=== PATIENT | male | born 1965 | race Caucasian/White ===

== ENCOUNTER 2016-10-04 16:15 | Observation (INO) ==
[2016-10-04 17:16] LABS: Eosinophils # 0.2 K/mcL (0.0-0.6); Hematocrit 43.5 % (37.5-50.1); Hemoglobin 14.8 g/dL (12.9-16.9); Immature Granulocytes % 0.4 % (0-4); Lymphocytes # 1.3 K/mcL (0.6-4.6); Lymphocytes % 24.1 %; Mean Corpuscular Hemoglobin 28.6 pg (28.0-33.3); Mean Corpuscular Volume 84.1 fL (83.0-100.0); Mean Platelet Volume 9.9 fL (9.4-12.4); Monocytes # 0.4 K/mcL (0.0-1.3); Monocytes % 8.1 %; Neutrophils # 3.4 K/mcL (1.6-8.9); Platelet Count 150 K/mcL (140-400); Red Blood Count 5.17 M/mcL (4.19-5.50); Red Cell Distribution Width 14.5 % (11.5-14.5); Segmented Neutrophils % 64.4 %
[2016-10-04 17:27] LABS: BUN/Creatinine Ratio 16 (6-26); Blood Urea Nitrogen 13 mg/dL (8-26); Carbon Dioxide 27 mEq/L (19-29); Chloride 101 mEq/L (98-109); Glucose 94 mg/dL (70-99); Osmolality,Calculated 284 (280-300); Potassium 3.9 mEq/L (3.5-4.5); Sodium 137 mEq/L (136-145); eGFR For African Americans > 60 (> 60); eGFR For Non-African Americans > 60 (> 60)
--- NOTE | 2016-10-04 18:35 | Emergency Department Note ---
Disposition Clinical Impression: Chest pain, rule out acute myocardial infarction Disposition: Admitted As Inpatient Condition: Good Time of Disposition: 18:36 Chest Pain HPI - General Chief Complaint: ED Chest Pain Stated Complaint: CP x1day,jaw pain Time Seen by Provider: 10/04/16 17:04 Source: patient Mode of arrival: ambulatory Limitations: no limitations Vital Signs Reviewed: Yes Nursing Notes Reviewed: Yes - History of Present Illness HPI Narrative: 50-year-old male presents with concerns of chest pain intermittently over the past 24 hours. Patient states the chest pain as a deep aching pain that radiates to his left jaw and is associated with nausea and left upper extremity paresthesias. Patient denies shortness of breath. 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 There is also a strong family history of cardiac disease. Has not had a previous evaluation of his heart. Does not have a primary care provider. Has become progressive and intermittent over the past 24 hours. Never had pain like this before. Currently pain free in the emergency department however. Severity scale (1-10): 4 - Related Data Home Medications Medication Instructions Recorded Confirmed Lisinopril/Hydrochlorothiazide 1 tab PO DAILY 09/22/15 10/04/16 [Zestoretic 20-25 mg Tablet] Allergies Allergy/AdvReac Type Severity Reaction Status Date / Time Penicillins [PCN] Allergy See Verified 10/04/16 16:31 Comments All systems ED: reviewed and negative except as stated. Constitutional: Denies: fever, chills, weakness Cardiovascular: Reports: chest pain, dyspnea on exertion. Denies: palpitations , orthopnea Chest Pain PMH - Past Medical History Medical history: Reports: hypertension, other Surgical history: Reports: appendectomy, herniorrhaphy, other Psychiatric history: Reports: no psych history - Social History Smoking Status: Former smoker Alcohol use: Reports: none Drug use: Reports: none Physical Exam General: Alert and in no acute distress Skin: Warm, dry, intact Head: Normocephalic and atraumatic Neck: Supple, trachea midline and no tenderness Cardiovascular: RRR, no murmur, normal perfusion Respiratory: CTAB, no wheezing, cough, or respiratory distress Musculoskeletal: Normal strength, no tenderness, swelling or deformity GI: Soft, nontender, nondistended. Bowel sounds present Neuro: A&O to person, place, time and situation. No focal deficits noted on exam Psychiatric: cooperative and appropriate mood and affect. - General Limitations: no limitations General appearance: alert, in no apparent distress Course Vital Signs Temperature 97.9 F 10/04/16 16:26 Pulse Rate 79 10/04/16 16:26 Respiratory Rate 18 10/04/16 16:26 Blood Pressure 170/79 10/04/16 16:26 O2 Sat by Pulse Oximetry 96 10/04/16 16:26 Temperature 97.7 F 10/04/16 21:39 Pulse Rate 82 10/04/16 21:39 Respiratory Rate 16 10/04/16 21:39 Blood Pressure 109/56 10/04/16 21:39 O2 Sat by Pulse Oximetry 95 10/04/16 21:39 Oxygen Delivery Oxygen Delivery Room Air Chest Pain - Medical Records Medical records reviewed: Yes I reviewed the patient's medical records. - Lab Data Lab results reviewed: Yes I reviewed the patient's lab results. Result diagrams: 10/04/16 16:59 10/04/16 16:59 Lab Results 10/04/16 10/04/16 10/04/16 Range/Units 16:59 16:59 16:59 WBC 5.3 (4.3-11.1) K/mcL RBC 5.17 (4.19-5.50) M/mcL Hgb 14.8 (12.9-16.9) g/dL Hct 43.5 (37.5-50.1) % MCV 84.1 (83.0-100.0) fL MCH 28.6 (28.0-33.3) pg MCHC 34.0 (31.6-35.5) g/dL RDW 14.5 (11.5-14.5) % Plt Count 150 (140-400) K/mcL MPV 9.9 (9.4-12.4) fL Immature Gran % 0.4 (0-4) % Seg Neutrophils % 64.4 % Lymphocytes % 24.1 % Monocytes % 8.1 % Eosinophils % 3.0 % Basophils % 0.0 % Neutrophils # 3.4 (1.6-8.9) K/mcL Lymphocytes # 1.3 (0.6-4.6) K/mcL Monocytes # 0.4 (0.0-1.3) K/mcL Eosinophils # 0.2 (0.0-0.6) K/mcL Basophils # 0.0 (0.0-0.2) K/mcL Sodium 137 (136-145) mEq/L Potassium 3.9 (3.5-4.5) mEq/L Chloride 101 (98-109) mEq/L Carbon Dioxide 27 (19-29) mEq/L BUN 13 (8-26) mg/dL Creatinine 0.83 (0.72-1.25) mg/dL Est GFR ( Amer) > 60 (> 60) Est GFR (Non-Af Amer) > 60 (> 60) BUN/Creatinine Ratio 16 (6-26) Glucose 94 (70-99) mg/dL Calculated Osmolality 284 (280-300) Calcium 10.0 (8.6-10.8) mg/dL Troponin I 0.00 (0-0.03) ng/mL - Radiology Data Radiology results reviewed: Yes I reviewed the patient's radiology results. - EKG Data EKG attestation: Yes I reviewed and interpreted this EKG. EKG results narrative: ECG - interpreted by ED physician. Rate 80, normal sinus rhythm, no STEMI, MI, QT intervals, and QRS within normal limits Heart Score - Score History: Moderately Suspicious EKG: Normal Age: 45-65 Risk Factors: Equal/Greater than 3 risk factor or history of atherosclerotic disease Troponin: Less than normal limit HEART Score Total: 4
[2016-10-04] MEDS ORDERED: Aspirin 81 MG TAB.CHEW PO ONE (18:51)
--- NOTE | 2016-10-04 21:47 | Internal Med History&Physical ---
Date of Encounter: 10/04/16 Time of Encounter: 21:45 Assessment and Plan (1) Chest pain Current visit: Yes Status: Acute Currently chest pain-free. As per the history he gives history of exertional chest pain. Significant cardiac history in the family. Will start aspirin, statin. Trending troponin 3, first troponin is negative, no EKG changes at this time. Will order nuclear stress test tomorrow. consult cardio if abnormal stress test. Qualifiers: Chest pain type: unspecified Qualified Code(s): R07.9 - Chest pain, unspecified (2) Hypertension Current visit: No Status: Chronic BP controlled now, Will continue home meds. Qualifiers: Hypertension type: essential hypertension Qualified Code(s): I10 - Essential (primary) hypertension (3) Tobacco use Current visit: No Status: Chronic Internal Medicine - H&P: HPI Chief complaint: chest pain Admitted From: Home Plans for Post Hospital Care: Home History of present illness: Mr. De Anda is a 50 year old male with PMH of HTN presented with with concerns of chest pain intermittently over the past 24 hours. Patient states the chest pain is midsternal that radiates to his left jaw and is associated with nausea and left upper extremity paresthesias. Patient denies shortness of breath. 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 There is also a strong family history of cardiac disease. He reports that the chest pain gets worse with exertion, denies any shortness of breath at this time. Does not have a primary care provider. Currently pain free in the emergency department however. Past Med Surg Social Fam HX - Past Medical History Medical history: hypertension, other Psychiatric history: no psych history - Past Surgical History Surgical History: appendectomy, herniorrhaphy, other - Social History Smoking Status: Former smoker Smokeless Tobacco Status: Yes (chew tobacco) Alcohol use: none Drug use: none - Family History Mother Living Status: Hx Family Cancer: Yes (breast and bone cancer) Father Living Status: Hx Family Cardiac Disorders: Yes (HTN) Hx Family Cancer: Yes (lung cancer) Internal Medicine - H&P: Meds Lisinopril/Hydrochlorothiazide [Zestoretic 20-25 mg Tablet] 1 tab PO DAILY 09/21 [History] Allergies Penicillins [PCN] Allergy (Verified 10/04/16 16:31) See Comments All Systems PM: A 10-system review of systems was performed and is negative for pertinent findings except as documented above in the HPI. - Constitutional Constitutional: as per HPI - EENT Eyes: as per HPI Ears: no ear discharge, no ear pain, no tinnitus Nose, mouth and throat: no dysphagia, no nasal discharge, no neck pain, no sore throat - Breasts Breasts: as per HPI - Cardiovascular Cardiovascular ROS IM: no chest pain, no diaphoresis, no dyspnea, no lightheadedness, no palpitations, no syncope - Respiratory Respiratory: as per HPI - Gastrointestinal Gastrointestinal: no abdominal pain, no diarrhea, no hematemesis, no hematochezia, no melena, no nausea, no vomiting - Musculoskeletal Musculoskeletal ROS IM: no numbness, no tingling - Constitutional Vitals: Temp Pulse Resp BP Pulse Ox 97.7 F 82 16 109/56 95 10/04/16 21:39 10/04/16 21:39 10/04/16 21:39 10/04/16 21:39 10/04/16 21:39 General appearance: Present: A&O X 3, no acute distress Exam: Morbidity obese. Neck supple. Chest: Clear, no added sounds CVS S1 and S2, regular, no murmurs rubs or gallops. Abdomen soft, nontender, obese, bowel sounds are present. Extremities no edema. Neurologic alert and awake, no focal neuro deficits. Internal Med - H&P Results - Labs CBC & Chem 7: 10/04/16 16:59 10/04/16 16:59
[2016-10-04] MEDS ORDERED: Naloxone 0.4 MG/ML INJ IVP PRN ×2 (22:13→22:14)
[2016-10-04] MEDS ORDERED: *HR* HYDROcodone/Acet 5/325 mg TABLET PO PRN (22:14)
[2016-10-05 05:39] LABS: Basophils % 0.2 %; Eosinophils # 0.2 K/mcL (0.0-0.6); Eosinophils % 3.1 %; Hematocrit 41.2 % (37.5-50.1); Hemoglobin 14.1 g/dL (12.9-16.9); Immature Granulocytes % 0.6 % (0-4); Lymphocytes # 1.5 K/mcL (0.6-4.6); Mean Corpuscular HGB Conc 34.2 g/dL (31.6-35.5); Mean Corpuscular Hemoglobin 29.5 pg (28.0-33.3); Mean Corpuscular Volume 86.2 fL (83.0-100.0); Mean Platelet Volume 10.1 fL (9.4-12.4); Monocytes # 0.5 K/mcL (0.0-1.3); Monocytes % 9.4 %; Platelet Count 147 K/mcL (140-400); Red Blood Count 4.78 M/mcL (4.19-5.50); Red Cell Distribution Width 14.9 % (11.5-14.5); Segmented Neutrophils % 57.7 %
[2016-10-05] MEDS: *HR* Heparin 5,000 UNIT/ML VIAL SQ SCH ×2 (05:50→18:17)
[2016-10-05 05:53] LABS: BUN/Creatinine Ratio 20 (6-26); Blood Urea Nitrogen 24 mg/dL (8-26); Calcium 9.7 mg/dL (8.6-10.8); Carbon Dioxide 30 mEq/L (19-29); Chloride 100 mEq/L (98-109); Chol/HDL Ratio 7.6 (0-4.9); Cholesterol 145 mg/dL (< 200); Glucose 146 mg/dL (70-99); HDL Cholesterol 19 mg/dL (40-59); Magnesium 2.2 mg/dL (1.6-2.6); Osmolality,Calculated 291 (280-300); Phosphorous 5.1 mg/dL (2.3-4.7); Sodium 137 mEq/L (136-145); Triglycerides 548 mg/dL (< 150); eGFR For African Americans > 60 (> 60); eGFR For Non-African Americans > 60 (> 60)
[2016-10-05] MEDS ORDERED: Regadenoson 0.4 MG/5 ML SYRINGE IVP ONE (07:31)
[2016-10-05] MEDS: Aspirin 81 MG TAB.CHEW PO SCH (14:21)
--- NOTE | 2016-10-05 17:43 | Internal Med Progress Note ---
Date of Encounter: 10/05/16 Time of Encounter: 09:20 - Assessment and plan (1) Chest pain Current Visit: Yes Status: Acute Assessment and plan: Patient denies chest pain since arrival to the unit. Patient has completed day 1 of stress test, D2 tomorrow. Continue telemetry Continue to monitor chest pain Cardiac diet Oxygen as needed to maintain sats greater than 92% Cardiology consult if abnormal stress. Qualifiers: Chest pain type: unspecified Qualified Code(s): R07.9 - Chest pain, unspecified (2) Hypertension Current Visit: No Status: Chronic Assessment and plan: Chronic. Continue home medications. Well-controlled in inpatient setting. Qualifiers: Hypertension type: essential hypertension Qualified Code(s): I10 - Essential (primary) hypertension (3) Tobacco use Current Visit: No Status: Chronic Assessment and plan: Patient states he smokes one half pack cigarettes per day. He is not interested in smoking cessation at this time. (4) DVT prophylaxis Current Visit: No Status: Acute Assessment and plan: Patient is ambulatory observation status. - Time Spent With Patient less than 15 minutes - Subjective Interval history: Patient was seen and examined at 9:20 AM. He is sitting in his chair watching TV. He is alert and oriented. 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 He reported left jaw pain rated 9 out of 10, it then radiated down into his left neck. He pinpoints in the area on left lateral neck that is pick pulling machine tender to palpation. He then began having midsternal chest pain that radiated out bilaterally to left and right chest. He said that was a constant 4-5/10. He denied shortness of breath. He did report nausea and diaphoresis, most likely due to the heat he said. He states that he became hot and sweaty when he was helping unload his truck. He said that he driven about 30 hours and when he laid down in the sleeper of his truck, he began having alternating/bilateral arm falling asleep that was awakening him while he was sleeping. He denies knowledge of carpal tunnel or recent or chronic neck injury or pain. He denies any family history of heart disease, but tells the admit her that he has a strong family history of heart disease with in his family. His troponins were negative. Chest x-ray was negative. No EKG changes. Patient has completed day 1 of stress test. He has been started on aspirin and statin. Will consult cardiology if stress test is abnormal tomorrow. - Constitutional Vitals: Temp Pulse Resp BP Pulse Ox 98.6 F 87 17 125/87 95 10/05/16 14:55 10/05/16 14:55 10/05/16 14:55 10/05/16 14:55 10/05/16 14:55 General appearance: Present: A&O X 3, no acute distress, answers questions appropriately. Absent: pleasant - Head Head exam: Present: normal inspection - Eye Eye exam: Present: normal appearance, conjuntiva pink - ENT ENT exam: Present: mucous membranes moist, normal exam - Neck Neck exam general surgery: Present: normal inspection. Absent: lymphadenopathy , tenderness - Respiratory Respiratory exam: Present: decreased breath sounds, CTAB. Absent: chest wall tenderness, rales, respiratory distress, rhonchi, stridor, wheezes - Cardiovascular Cardiovascular exam: Present: distant heart sounds, RRR, +S1, +S2. Absent: clicks, diastolic murmur, gallop, systolic murmur - GI/Abdominal GI/Abdominal exam: Present: distended, normal bowel sounds, soft. Absent: hepatomegaly, tenderness - Extremities Exam Extremities exam: Present: full ROM, pedal edema, warm, radial pulses palpable and symetrical. Absent: calf tenderness, normal inspection, tenderness Additional comments: +1 nonpitting edema to bilateral lower extremities. Patient states this is normal for him. - Neurological Exam Neurological exam: Present: alert, oriented X3. Absent: facial droop, speech deficit - Skin Skin exam: Present: dry, normal color, warm Internal Medicine: Result - Labs CBC & Chem 7: 10/05/16 05:27 10/05/16 05:27 Labs: Short CBC 10/05/16 Range/Units 05:27 WBC 5.2 (4.3-11.1) K/mcL Hgb 14.1 (12.9-16.9) g/dL Hct 41.2 (37.5-50.1) % Plt Count 147 (140-400) K/mcL Neutrophils # 3.0 (1.6-8.9) K/mcL BMP 10/05/16 05:27 Sodium 137 Potassium 4.0 Chloride 100 Carbon Dioxide 30 H BUN 24 D Creatinine 1.19 Glucose 146 H Calcium 9.7 Cardiac Enzymes 10/04/16 10/05/16 Range/Units 22:28 05:27 Troponin I 0.00 0.01 (0-0.03) ng/mL Consult Discharge Plan - Plan Referrals: NO,PCP [Primary Care Provider] -
[2016-10-06] MEDS: *HR* Heparin 5,000 UNIT/ML VIAL SQ SCH (06:14)
[2016-10-06] MEDS: Aspirin 81 MG TAB.CHEW PO SCH (09:36)
[2016-10-06 11:36] VITALS: BP 134/78
--- NOTE | 2016-10-06 12:14 | Nuclear Medicine Stress Report ---
Exercise Nuclear Stress 2 day Name: Pierre De Anda Date of Study: 10/05/2016 Date: 1965 Ht: 72.0 in Medical Record#: [id number] Age: 50 Wt: 312.0 lb Gender: Male Order #: [id number] Location: [facility] Room: [facility] Supervising Provider: Coty Berry CNP Reading Physician: Miriam Rodarte DO Ordering Physician: Paulette Xiong CNP Primary Care Physician: None Stress Technologist: Stephanie Crum, ACQUISITION ANALYST,CPFT Cabinet Installer: Aakash Hickey Indications: Chest Pain Impression: Perfusion imaging was negative for ischemia or infarct. Exercise ECG was negative for ischemia. Isolated PVC, ventricular bigeminy and trigeminy during exercise. Gated EF = >70%. History: Hypertension Hypercholesteremia Stress Test Summary: Stress Test Type: Pharmacologic Baseline Information: Initial Heart Rate: 77 Blood Pressure: 106/54 Stress Information: Stress Time: 6 min 42 sec Test Terminated Due to (primary): Dyspnea Fatigue Maximum Blood Pressure: 190/62 Maximum Heart Rate: 148 Percent Maximum Heart Rate Achieved: 88 Double Product: [id number] METS Reached: 7 Symptoms: Leg discomfort, Shortness of breath, Fatigue Nuclear Summary: SPECT myocardial perfusion imaging using Tc99m Sestamibi given intravenously was performed at rest and following cardiac stress testing. The resting images were obtained following initial dose of 34.9 mCi. Following stress an additional dose of 34.7 mCi was given at peak exercise or 30 seconds post regadenoson infusion. Medication Given: Time Medication Dose Units Route Findings: Stress Note * Resting ECG demonstrated normal sinus rhythm with nonspecific ST abnormalities. * Exercise ECG is negative for ischemia. * A PVC, occasional ventricular bigeminy and trigeminy seen during exercise. * Patient had no chest pain during stress. * The exercise capacity was fair. Hemodynamic responses * Normal hemodynamic responses to exercise. Study Quality * Study quality was fair. Gated EF > 70% * Gated EF > 70%. Left Ventricle * The left ventricle is not dilated. TID * No evidence of transient ischemic dilatation. Lung Uptake * There is no evidence of increase lung uptake. NORMALS * Normal wall motion. PERFUSION * There is a mild intensity fixed perfusion defect in the basal and mid inferior wall. Wall motion is normal. Findings represent artifact. * Other areas demonstrate normal rest and stress perfusion. Updated by Miriam Rodarte on 10/06/2016 12:01:26 PM electronically signed on 10/06/2016 12:09:19 PM with status of Final
--- NOTE | 2016-10-06 14:06 | Discharge Summary ---
Date of Encounter: 10/06/16 Time of Encounter: 13:45 - Discharge Diagnosis (1) Chest pain Priority: Primary Status: Acute Comments: Irene states that his left jaw pain finally stopped while he was waiting to see me today. He finished day 2 of his stress test today. He says he is chest pain -free. Chest x-ray was negative, there were no EKG changes, troponins were negative. His lungs are clear anteriorly and posteriorly, S1-S2 regular rate and rhythm, he has minimal peripheral edema, nonpitting. Stress test was negative for ischemia or infarct, he did have isolated PVCs, ventricular bigeminy and trigeminy during exercise. Gated EF was greater than 70%. Patient reached 88% maximum heart rate and had leg discomfort, shortness of breath, fatigue during the stress test. Patient has increased risk factors of obesity, smoking, hypertension, and age. Patient will need to follow up with primary care physician. Qualifiers: Chest pain type: unspecified Qualified Code(s): R07.9 - Chest pain, unspecified (2) Hypertension Priority: Secondary Status: Chronic Comments: Well-controlled in inpatient setting. Continue medications at home. Qualifiers: Hypertension type: essential hypertension Qualified Code(s): I10 - Essential (primary) hypertension (3) Tobacco use Priority: Secondary Status: Chronic Comments: Patient states that he is not interested in smoking cessation materials or tools at this time. He says that he does not need cigarettes, however he will never stop using smokeless tobacco. (4) Morbid obesity with BMI of 40.0-44.9, adult Priority: Secondary Status: Chronic Comments: Chronic. Lifestyle changes. (5) DVT prophylaxis Priority: Secondary Status: Acute Comments: Patient is ambulatory. - Discharge Medications Prescriptions: Aspirin 81 mg PO DAILY #30 tab.chew Simvastatin [Zocor] 40 mg PO HS #30 tablet Home Medications: Lisinopril/Hydrochlorothiazide [Zestoretic 20-25 mg Tablet] 1 tab PO DAILY 09/21 [History] Aspirin 81 mg PO DAILY #30 tab.chew 10/06/16 [Rx] Simvastatin [Zocor] 40 mg PO HS #30 tablet 10/06/16 [Rx] Allergies/Adverse Reactions: Allergies Penicillins [PCN] Allergy (Verified 10/04/16 16:31) See Comments Procedures/tests Complete & Pending: Procedures Performed prior 72 hours Category Date Time Status NM jessica perf SPECT multi [NM] Routine Exams 10/04/16 22:18 Taken SP exercise nuclear stress Routine Y 10/04/16 22:17 Completed Date of admission: 10/04/16 20:51 Primary care physician: PCP NO Discharging clinician: Paulette Xiong Anticipated date of discharge: 10/06/16 - Patient Status Disposition: Home, Self-Care Functional capacity at discharge: independent ambulation Overall status at discharge: patient is back to baseline - Discharge Instructions Follow Up With: NO,PCP [Primary Care Provider] - Additional Instructions: Start your new medications in the morning. Continue your home medications. Follow up with your primary care physician to be cleared to return to work. Called the resident clinic in the morning to schedule an appointment. Return to the emergency department for any other concerning symptoms or if your symptoms return or worsen. - Diet and Activity Activity: increase activity as tolerated, return to work once cleared by your PCP/specialist, resume usual activities as tolerated Diet: low fat, low cholesterol Hospital course: Mr. De Anda is a 50 year old male prior medical history of hypertension. He presented to the emergency department on October 04 with complaint of left jaw pain rated 9/10, with radiation into the left neck. He pinpoints an area in the left lateral neck that is calender wind up tender to palpation. There were no palpable nodes, masses, nodules. Patient states he began began having midsternal chest pain that radiated out bilaterally to right and left chest. He said it was a constant 4-5/10. He denied shortness of breath, no nausea, but he did report diaphoresis that was most likely due to the heat. 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 He reports that he driven about 30 hours and when he laid down in the sleeper of his truck, he began having alternating/bilateral arm falling asleep/numbness/tingling that was awakening him while he was sleeping. The symptoms have resolved as well. He has no sensory deficits and his strengths are strong and equal bilaterally. He denies knowledge of carpal tunnel or any neck injury or pain, either acute or chronic. He denies family history of heart disease, however he tells he admitted that he has a strong family history of heart disease on both sides of his family. Troponins were negative. Chest x-ray was negative. There were no EKG changes. Stress test was also negative with a gaited EF of greater than 70% . Patient has been started on an aspirin and statin. I have given him prescriptions for both of those. Today he states that he waited so long to see me for his jaw stopped hurting. I have requested that he follow up with primary care or resident clinic to be cleared to return to work. 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 Patient is alert and oriented. He has 2 family members in the room. His vitals and labs have been within normal limits. He is stable for discharge. Time spent discussing smoking cessation with patient: 3 to 10 minutes - Time Spent with Patient Total time spent providing and/or coordinating discharge services: Less than 30 minutes - Constitutional Vitals: Temp Pulse Resp BP Pulse Ox 98.1 F 68 16 134/78 99 10/06/16 11:31 10/06/16 11:31 10/06/16 11:31 10/06/16 11:31 10/06/16 11:31 General appearance: Present: A&O X 3, morbidly obese, no acute distress, answers questions appropriately. Absent: pleasant - Head Head exam: Present: normal inspection - Eye Eye exam: Present: normal appearance, conjuntiva pink - ENT ENT exam: Present: mucous membranes moist, normal exam - Neck Neck exam general surgery: Present: normal inspection. Absent: lymphadenopathy , tenderness - Respiratory Respiratory exam: Present: CTAB. Absent: decreased breath sounds, rales, rhonchi, wheezes - Cardiovascular Cardiovascular exam: Present: RRR, +S1, +S2. Absent: clicks, diastolic murmur, gallop, systolic murmur - GI/Abdominal GI/Abdominal exam: Present: distended, normal bowel sounds, soft. Absent: hepatomegaly, tenderness - Extremities Exam Extremities exam: Present: warm, radial pulses palpable and symetrical. Absent : pedal edema, tenderness - Neurological Exam Neurological exam: Present: alert, oriented X3, no focal deficits. Absent: altered, facial droop, speech deficit - Skin Skin exam: Present: dry, normal color, warm. Absent: rash
--- NOTE | 2016-10-07 09:42 | Electrocardiograph Report ---
[address] [place] [address] Test Date: 2016-10-04 Pat Name: Pierre De Anda Department: 105 Room: 3B39 Gender: M Caregivers Homecare: [facility] : 1965 Requested By: Luis Manuel Dumont Order Number: [id number] Reading MD: Vern Gaitan MD Measurements Intervals [place] Rate: 80 P: 34 HI: 214 QRS: 14 QRSD: 92 T: 30 QT: 344 QTc: 379 Interpretive Statements SINUS RHYTHM WITH FIRST DEGREE AV BLOCK Electronically Signed On 10-07-2016 9:41:16 EDT by Vern Gaitan MD
== END 2016-10-06 15:19 | disposition home or self-care (01) ==
LOC: 3BNU 16:15 → EMEROO 16:15 → 3BNU 21:36
PROVIDERS: ADMIT Internal Medicine Endocrinology, Diabetes & Metabolism; ATTEND Registered Nurse

== ENCOUNTER 2018-10-24 19:43 | Observation (INO) ==
[2018-10-24] MEDS ORDERED: Ondansetron 4 MG/2 ML VIAL IVP ONE ×2 (20:23→22:35)
[2018-10-24] MEDS ORDERED: *HR* FentaNYL (PF) 100 MCG/2 ML VIAL IVP ONE (20:26)
[2018-10-24 20:27] LABS: Bilirubin,Urine Small (Negative); Blood,Urine Negative (Negative); Clarity,Urine Clear (Clear); Color,Urine Yellow (Yellow); Glucose,Urine (UA) Normal (Normal); Ketones,Urine 15 mg/dL (Negative); Leukocyte Esterase,Urine Negative (Negative); Nitrite,Urine Negative (Negative); Protein,Urine Negative (Neg-Trace); Specific Gravity,Urine 1.025 (1.010-1.025)
[2018-10-24 20:37] LABS: Basophils % 0.1 %; Eosinophils # 0.2 K/mcL (0.0-0.6); Eosinophils % 2.1 %; Hematocrit 37.7 % (37.5-50.1); Hemoglobin 12.3 g/dL (12.9-16.9); Immature Granulocytes % 0.3 % (0-4); Lymphocytes # 1.3 K/mcL (0.6-4.6); Lymphocytes % 18.5 %; Mean Corpuscular HGB Conc 32.6 g/dL (31.6-35.5); Mean Corpuscular Hemoglobin 28.9 pg (28.0-33.3); Mean Corpuscular Volume 88.5 fL (83.0-100.0); Mean Platelet Volume 9.4 fL (9.4-12.4); Monocytes # 0.4 K/mcL (0.0-1.3); Monocytes % 6.1 %; Neutrophils # 5.1 K/mcL (1.6-8.9); Platelet Count 146 K/mcL (140-400); Red Blood Count 4.26 M/mcL (4.19-5.50); Red Cell Distribution Width 14.2 % (11.5-14.5); Segmented Neutrophils % 72.9 %
--- NOTE | 2018-10-24 20:44 | Emergency Department Note ---
Disposition Clinical Impression: Chronic cholecystitis, Lymphadenopathy Disposition: Admitted As Inpatient Condition: Good Referrals: Natalia Lynch, ARLEN [Primary Care Provider] - Forms: ED Satisfaction Letter, Work/School Release Time of Disposition: 22:53 Abdominal Pain HPI - General Chief Complaint: ED Abdominal Pain Stated Complaint: Gallstones Time Seen by Provider: 10/24/18 19:49 Source: patient Limitations: no limitations Nursing Notes Reviewed: Yes Vital Signs Reviewed: Yes - History of Present Illness HPI Narrative: Mr. De Anda is a 52 yo man who came to the ED on 10/24/18 for worsening diffuse abdominal pain that radiates to his flanks bilaterally. He was seen on 10/21/18 and had an US that showed cholelithiasis w/o cholecystitis. He thinks he has had a low-grade fever. He is eating and drinking, but nauseated. He said he came to the ED due to severity of pain; he "just wants his gallbladder out." Patient has been working with patient support representative to control BP and prediabetes; he reports losing nearly 40 lbs during past 6 months as well as being able to stop his BP medications. PMH significant for diverticulitis, HTN. Social history significant for smoking occasionally, chewing tobacco but not alcohol or other drugs. Pain Scale: 9 - Related Data Home Medications Medication Instructions Recorded Confirmed Lisinopril/Hydrochlorothiazide 1 tab PO DAILY 09/22/15 10/04/16 [Zestoretic 20-25 mg Tablet] Previous Rx's Medication Instructions Recorded Aspirin 81 mg PO DAILY #30 tab.chew 10/06/16 Simvastatin [Zocor] 40 mg PO HS #30 tablet 10/06/16 PredniSONE [Deltasone] 40 mg PO DAILY #5 tablet 01/13/18 Ciprofloxacin [Cipro] 500 mg PO BID #20 tablet 04/26/18 Ondansetron ODT [Zofran ODT] 4 mg SL Q6HR #12 tab.rapdis 04/26/18 metroNIDAZOLE [Flagyl] 500 mg PO TID #30 tablet 04/26/18 Hyoscyamine SL [Levsin SL] 0.125 mg SL TID #30 tab.subl 10/21/18 Ondansetron ODT [Zofran ODT] 4 mg SL Q6HR #30 tab.rapdis 10/21/18 Allergies Allergy/AdvReac Type Severity Reaction Status Date / Time Penicillins [PCN] Allergy See Verified 10/04/16 16:31 Comments All systems ED: reviewed and negative except as stated. Constitutional: Reports: weakness Respiratory: Reports: cough Gastrointestinal: Reports: abdominal pain, nausea Musculoskeletal: Reports: back pain Endocrine: Reports: fatigue Abdominal Pain PMH - Past Medical History Medical history: Reports: hypertension, other Reports: diverticulitis Male Surgical History: Reports: other Psychiatric history: Reports: no psych history - Social History Smoking status: Current some day smoker Alcohol use: Reports: none Drug use: Reports: none Physical Exam PE Gen: Anxious, AOx3, responsive ENT: Pupils equal and reactive, no discharge Card: Regular rhythm and rate, no murmur, no cyanosis, no clubbing, no peripheral edema, good perfusion in all extremities Resp: Lungs clear in all marx on auscultation GI: Abdomen soft, nondistended, diffusely tender to palpation, negative McBurney's Point, negative Rovsing's sign, negative Murillo's sign on exam. No stigmata. : Mild suprapubic tenderness, no distention MSK: Normal ROM, no deficits Neuro: CNI-XII intact, no tremor, no ataxia Psych: Appropriate affect, anxious, tearful - General Limitations: no limitations General appearance: alert, in no apparent distress Course Course Narrative: US on 10/21/18 showed cholelithiasis w/o wall thickening or pericholecystic fluid. Ordered CT abdomen/pelvis to evaluate. Also CBC, UA to evaluate for UTI/kidney stone, BMP. EKG to r/o cardiac etiology. Patient given fentanyl for pain and became comfortable, also given Zofran. Labs and EKG WNL. CT report found increasing pelvic and gastrohepatic lymphadenopathy with hepatosplenomegaly concerning for occult malignancy. Heme Onc consulted, would like patient admitted for workup. Patient agreed with plan. - Reevaluation(s) Reevaluation #1: Much more comfortable following pain medication, still reluctant to move. VS stable and WNL. Time: 21:30 Vital Signs Temperature 98.9 F 10/24/18 19:48 Pulse Rate 84 10/24/18 19:48 Respiratory Rate 18 10/24/18 19:48 Blood Pressure 150/83 10/24/18 19:48 O2 Sat by Pulse Oximetry 97 10/24/18 19:48 Temperature 98.9 F 10/24/18 19:48 Pulse Rate 84 10/24/18 19:48 Respiratory Rate 18 10/24/18 19:48 Blood Pressure 150/83 10/24/18 19:48 O2 Sat by Pulse Oximetry 97 10/24/18 19:48 Oxygen Delivery Oxygen Delivery Room Air Abdominal Pain - Medical Records Medical records reviewed: Yes I reviewed the patient's medical records. - Lab Data Lab results reviewed: Yes I reviewed the patient's lab results. Result diagrams: 10/24/18 20:14 10/24/18 20:22 Lab Results 10/24/18 10/24/18 10/24/18 Range/Units 20:14 20:17 20:18 WBC 7.0 (4.3-11.1) K/mcL RBC 4.26 (4.19-5.50) M/mcL Hgb 12.3 L (12.9-16.9) g/dL Hct 37.7 (37.5-50.1) % MCV 88.5 (83.0-100.0) fL MCH 28.9 (28.0-33.3) pg MCHC 32.6 (31.6-35.5) g/dL RDW 14.2 (11.5-14.5) % Plt Count 146 (140-400) K/mcL MPV 9.4 (9.4-12.4) fL Immature Gran % 0.3 (0-4) % Seg Neutrophils % 72.9 % Lymphocytes % 18.5 % Monocytes % 6.1 % Eosinophils % 2.1 % Basophils % 0.1 % Neutrophils # 5.1 (1.6-8.9) K/mcL Lymphocytes # 1.3 (0.6-4.6) K/mcL Monocytes # 0.4 (0.0-1.3) K/mcL Eosinophils # 0.2 (0.0-0.6) K/mcL Basophils # 0.0 (0.0-0.2) K/mcL Sodium (136-145) mEq/L Potassium (3.5-5.1) mEq/L Chloride (98-107) mEq/L Carbon Dioxide (23-29) mEq/L BUN (6-20) mg/dL Creatinine (0.70-1.30) mg/dL Est GFR ( Amer) (> 60) Est GFR (Non-Af Amer) (> 60) BUN/Creatinine Ratio (6-26) Glucose (70-105) mg/dL Calculated Osmolality (280-300) Calcium (8.6-10.3) mg/dL Total Bilirubin 0.6 (0.3-1.0) mg/dL Direct Bilirubin 0.1 (0.0-0.2) mg/dL Indirect Bilirubin 0.5 (0.0-1.2) mg/dL AST 14 (13-39) Units/L ALT 16 (7-52) Units/L Alkaline Phosphatase 64 (34-104) Units/L Troponin I (< 0.04) ng/mL Serum Total Protein 7.3 (6.4-8.9) g/dL Albumin 4.5 (3.5-5.7) g/dL Globulin 2.8 (2.4-3.5) g/dL Albumin/Globulin Ratio 1.6 (1.1-2.2) Lipase 26 (11-82) Units/L Urine Color Yellow (Yellow) Urine Clarity Clear (Clear) Urine pH 6.0 (5.0-8.0) pH Units Ur Specific [place] 1.025 (1.010-1.025) Urine Protein Negative (Neg-Trace) mg/dL Urine Glucose (UA) Normal (Normal) mg/dL Urine Ketones 15 H (Negative) mg/dL Urine Blood Negative (Negative) Urine Nitrite Negative (Negative) Urine Bilirubin Small H (Negative) Urine Urobilinogen 2.0 H (Normal) mg/dL Ur Leukocyte Esterase Negative (Negative) Ur Culture Indicated? NO (NO) 10/24/18 Range/Units 20:22 WBC (4.3-11.1) K/mcL RBC (4.19-5.50) M/mcL Hgb (12.9-16.9) g/dL Hct (37.5-50.1) % MCV (83.0-100.0) fL MCH (28.0-33.3) pg MCHC (31.6-35.5) g/dL RDW (11.5-14.5) % Plt Count (140-400) K/mcL MPV (9.4-12.4) fL Immature Gran % (0-4) % Seg Neutrophils % % Lymphocytes % % Monocytes % % Eosinophils % % Basophils % % Neutrophils # (1.6-8.9) K/mcL Lymphocytes # (0.6-4.6) K/mcL Monocytes # (0.0-1.3) K/mcL Eosinophils # (0.0-0.6) K/mcL Basophils # (0.0-0.2) K/mcL Sodium 137 (136-145) mEq/L Potassium 3.9 (3.5-5.1) mEq/L Chloride 104 (98-107) mEq/L Carbon Dioxide 24 (23-29) mEq/L BUN 14 (6-20) mg/dL Creatinine 0.91 (0.70-1.30) mg/dL Est GFR ( Amer) > 60 (> 60) Est GFR (Non-Af Amer) > 60 (> 60) BUN/Creatinine Ratio 15 (6-26) Glucose 99 (70-105) mg/dL Calculated Osmolality 285 (280-300) Calcium 9.4 (8.6-10.3) mg/dL Total Bilirubin (0.3-1.0) mg/dL Direct Bilirubin (0.0-0.2) mg/dL Indirect Bilirubin (0.0-1.2) mg/dL AST (13-39) Units/L ALT (7-52) Units/L Alkaline Phosphatase (34-104) Units/L Troponin I < 0.03 (< 0.04) ng/mL Serum Total Protein (6.4-8.9) g/dL Albumin (3.5-5.7) g/dL Globulin (2.4-3.5) g/dL Albumin/Globulin Ratio (1.1-2.2) Lipase (11-82) Units/L Urine Color (Yellow) Urine Clarity (Clear) Urine pH (5.0-8.0) pH Units Ur Specific [place] (1.010-1.025) Urine Protein (Neg-Trace) mg/dL Urine Glucose (UA) (Normal) mg/dL Urine Ketones (Negative) mg/dL Urine Blood (Negative) Urine Nitrite (Negative) Urine Bilirubin (Negative) Urine Urobilinogen (Normal) mg/dL Ur Leukocyte Esterase (Negative) Ur Culture Indicated? (NO) - Radiology Data Radiology results reviewed: Yes I reviewed the patient's radiology results. Abdomen/Pelvis CT 10/24/18 20:13 IMPRESSION: Enlarging bilateral pelvic lymph nodes with perinodal stranding. Moderate to marked splenomegaly. Increasing size and number of gastrohepatic lymph nodes. Increased stranding about the celiac axis. Moderate hepatomegaly. Cholelithiasis with suspected changes of chronic cholecystitis. Constellation of findings along with abnormal weight loss worrisome for occult malignancy. Lymphoma, leukemia, and perhaps prostate cancer are suggested as possible diagnoses. D/ / Royer Valencia MD / Royer Valencia MD Interpreting Provider: Royer Valencia MD - EKG Data EKG attestation: Yes I reviewed and interpreted this EKG. EKG shows normal: sinus rhythm Rate: normal Rhythm: NSR Interpretation: normal EKG
[2018-10-24 20:53] LABS: Albumin 4.5 g/dL (3.5-5.7); Albumin/Globulin Ratio 1.6 (1.1-2.2); Bilirubin,Direct 0.1 mg/dL (0.0-0.2); Bilirubin,Indirect 0.5 mg/dL (0.0-1.2); Bilirubin,Total 0.6 mg/dL (0.3-1.0); Globulin 2.8 g/dL (2.4-3.5); Total Protein 7.3 g/dL (6.4-8.9)
[2018-10-24 20:55] LABS: BUN/Creatinine Ratio 15 (6-26); Blood Urea Nitrogen 14 mg/dL (6-20); Calcium 9.4 mg/dL (8.6-10.3); Carbon Dioxide 24 mEq/L (23-29); Chloride 104 mEq/L (98-107); Glucose 99 mg/dL (70-105); Osmolality,Calculated 285 (280-300); Potassium 3.9 mEq/L (3.5-5.1); Sodium 137 mEq/L (136-145); eGFR For African Americans > 60 (> 60); eGFR For Non-African Americans > 60 (> 60)
[2018-10-24 20:56] LABS: Troponin I < 0.03 ng/mL (< 0.04)
[2018-10-24] MEDS ORDERED: Morphine Sulfate 2 MG/ML SYRINGE IVP ONE (22:35)
--- NOTE | 2018-10-24 22:47 | Emergency Department Note ---
Disposition Clinical Impression: Chronic cholecystitis, Lymphadenopathy Disposition: Admitted As Inpatient Condition: Good Referrals: Natalia Lynch CNP [Primary Care Provider] - Forms: ED Satisfaction Letter, Work/School Release Time of Disposition: 22:47 General Adult HPI - General Chief complaint: ED Abdominal Pain Stated complaint: Gallstones Time Seen by Provider: 10/24/18 19:49 Source: patient Limitations: no limitations - History of Present Illness Pain Scale: 9 - Related Data Home Medications Medication Instructions Recorded Confirmed RX: Lisinopril/Hydrochlorothiazide 1 tab PO DAILY 09/22/15 10/04/16 [Zestoretic 20-25 mg Tablet] Previous Rx's Medication Instructions Recorded RX: Aspirin 81 mg PO DAILY #30 tab.chew 10/06/16 RX: Simvastatin [Zocor] 40 mg PO HS #30 tablet 10/06/16 RX: PredniSONE [Deltasone] 40 mg PO DAILY #5 tablet 01/13/18 Ondansetron ODT [Zofran ODT] 4 mg SL Q6HR #12 tab.rapdis 04/26/18 RX: Ciprofloxacin [Cipro] 500 mg PO BID #20 tablet 04/26/18 metroNIDAZOLE [Flagyl] 500 mg PO TID #30 tablet 04/26/18 Hyoscyamine SL [Levsin SL] 0.125 mg SL TID #30 tab.subl 10/21/18 Ondansetron ODT [Zofran ODT] 4 mg SL Q6HR #30 tab.rapdis 10/21/18 Allergies Allergy/AdvReac Type Severity Reaction Status Date / Time Penicillins [PCN] Allergy See Verified 10/04/16 16:31 Comments Constitutional: Reports: weakness Respiratory: Reports: cough Gastrointestinal: Reports: abdominal pain, nausea Musculoskeletal: Reports: back pain Endocrine: Reports: fatigue Past Medical History - Past Medical History Medical history: Reports: hypertension, other Surgical history: Reports: appendectomy, herniorrhaphy, other Psychiatric history: Reports: no psych history - Social History Smoking Status: Current some day smoker Smokeless Tobacco Status: Yes (chew tobacco) Alcohol use: Reports: none Drug use: Reports: none Physical Exam - General Limitations: no limitations General appearance: alert, in no apparent distress Course Vital Signs Temperature 98.9 F 10/24/18 19:48 Pulse Rate 84 10/24/18 19:48 Respiratory Rate 18 10/24/18 19:48 Blood Pressure 150/83 10/24/18 19:48 O2 Sat by Pulse Oximetry 97 10/24/18 19:48 Temperature 98.9 F 10/24/18 19:48 Pulse Rate 84 10/24/18 19:48 Respiratory Rate 18 10/24/18 19:48 Blood Pressure 150/83 10/24/18 19:48 O2 Sat by Pulse Oximetry 97 10/24/18 19:48 Oxygen Delivery Oxygen Delivery Room Air Medical Decision Making - Lab Data Result diagrams: 10/24/18 20:14 10/24/18 20:22 Lab Results 10/24/18 10/24/18 10/24/18 Range/Units 20:14 20:17 20:18 WBC 7.0 (4.3-11.1) K/mcL RBC 4.26 (4.19-5.50) M/mcL Hgb 12.3 L (12.9-16.9) g/dL Hct 37.7 (37.5-50.1) % MCV 88.5 (83.0-100.0) fL MCH 28.9 (28.0-33.3) pg MCHC 32.6 (31.6-35.5) g/dL RDW 14.2 (11.5-14.5) % Plt Count 146 (140-400) K/mcL MPV 9.4 (9.4-12.4) fL Immature Gran % 0.3 (0-4) % Seg Neutrophils % 72.9 % Lymphocytes % 18.5 % Monocytes % 6.1 % Eosinophils % 2.1 % Basophils % 0.1 % Neutrophils # 5.1 (1.6-8.9) K/mcL Lymphocytes # 1.3 (0.6-4.6) K/mcL Monocytes # 0.4 (0.0-1.3) K/mcL Eosinophils # 0.2 (0.0-0.6) K/mcL Basophils # 0.0 (0.0-0.2) K/mcL Sodium (136-145) mEq/L Potassium (3.5-5.1) mEq/L Chloride (98-107) mEq/L Carbon Dioxide (23-29) mEq/L BUN (6-20) mg/dL Creatinine (0.70-1.30) mg/dL Est GFR ( Amer) (> 60) Est GFR (Non-Af Amer) (> 60) BUN/Creatinine Ratio (6-26) Glucose (70-105) mg/dL Calculated Osmolality (280-300) Calcium (8.6-10.3) mg/dL Total Bilirubin 0.6 (0.3-1.0) mg/dL Direct Bilirubin 0.1 (0.0-0.2) mg/dL Indirect Bilirubin 0.5 (0.0-1.2) mg/dL AST 14 (13-39) Units/L ALT 16 (7-52) Units/L Alkaline Phosphatase 64 (34-104) Units/L Troponin I (< 0.04) ng/mL Serum Total Protein 7.3 (6.4-8.9) g/dL Albumin 4.5 (3.5-5.7) g/dL Globulin 2.8 (2.4-3.5) g/dL Albumin/Globulin Ratio 1.6 (1.1-2.2) Lipase 26 (11-82) Units/L Urine Color Yellow (Yellow) Urine Clarity Clear (Clear) Urine pH 6.0 (5.0-8.0) pH Units Ur Specific [place] 1.025 (1.010-1.025) Urine Protein Negative (Neg-Trace) mg/dL Urine Glucose (UA) Normal (Normal) mg/dL Urine Ketones 15 H (Negative) mg/dL Urine Blood Negative (Negative) Urine Nitrite Negative (Negative) Urine Bilirubin Small H (Negative) Urine Urobilinogen 2.0 H (Normal) mg/dL Ur Leukocyte Esterase Negative (Negative) Ur Culture Indicated? NO (NO) 10/24/18 Range/Units 20:22 WBC (4.3-11.1) K/mcL RBC (4.19-5.50) M/mcL Hgb (12.9-16.9) g/dL Hct (37.5-50.1) % MCV (83.0-100.0) fL MCH (28.0-33.3) pg MCHC (31.6-35.5) g/dL RDW (11.5-14.5) % Plt Count (140-400) K/mcL MPV (9.4-12.4) fL Immature Gran % (0-4) % Seg Neutrophils % % Lymphocytes % % Monocytes % % Eosinophils % % Basophils % % Neutrophils # (1.6-8.9) K/mcL Lymphocytes # (0.6-4.6) K/mcL Monocytes # (0.0-1.3) K/mcL Eosinophils # (0.0-0.6) K/mcL Basophils # (0.0-0.2) K/mcL Sodium 137 (136-145) mEq/L Potassium 3.9 (3.5-5.1) mEq/L Chloride 104 (98-107) mEq/L Carbon Dioxide 24 (23-29) mEq/L BUN 14 (6-20) mg/dL Creatinine 0.91 (0.70-1.30) mg/dL Est GFR ( Amer) > 60 (> 60) Est GFR (Non-Af Amer) > 60 (> 60) BUN/Creatinine Ratio 15 (6-26) Glucose 99 (70-105) mg/dL Calculated Osmolality 285 (280-300) Calcium 9.4 (8.6-10.3) mg/dL Total Bilirubin (0.3-1.0) mg/dL Direct Bilirubin (0.0-0.2) mg/dL Indirect Bilirubin (0.0-1.2) mg/dL AST (13-39) Units/L ALT (7-52) Units/L Alkaline Phosphatase (34-104) Units/L Troponin I < 0.03 (< 0.04) ng/mL Serum Total Protein (6.4-8.9) g/dL Albumin (3.5-5.7) g/dL Globulin (2.4-3.5) g/dL Albumin/Globulin Ratio (1.1-2.2) Lipase (11-82) Units/L Urine Color (Yellow) Urine Clarity (Clear) Urine pH (5.0-8.0) pH Units Ur Specific [place] (1.010-1.025) Urine Protein (Neg-Trace) mg/dL Urine Glucose (UA) (Normal) mg/dL Urine Ketones (Negative) mg/dL Urine Blood (Negative) Urine Nitrite (Negative) Urine Bilirubin (Negative) Urine Urobilinogen (Normal) mg/dL Ur Leukocyte Esterase (Negative) Ur Culture Indicated? (NO) Attestation Statement - Attestation Attestation: I reviewed the residents documentation and agree with the residents assessment and plan of care. I have personally had face to face time with the patient. (Brief History, Brief Exam, and MDM) I personally supervised and was present for the woen/critical portions of the following procedures completed by the resident: EKG 52 year old male presents to the ED with complaints of RUQ pain and was most recently evlautd by the ED on 10/21 with a negtie RUQ US. He has followup with surgery next week for consulation on removing the galbladder. It appears that he may have chornic cholecystitis but more concerning is that there may be a concnern for GI cancer with the lymph nodes that are present. He states that he has lost 50 pounds in 15 weeks but this has been intentional with diet. we have discussed with surgery who does not believe that his a surgical candidate at is time. Discussed case with oncology and they have otherwise recommended admission to the medicien service and they will see in consult tomorrow
[2018-10-25] MEDS ORDERED: Naloxone 0.4 MG/ML INJ IVP PRN (01:38)
[2018-10-25] MEDS ORDERED: Acetaminophen 325 MG TABLET PO PRN ×2 (01:41→17:06)
--- NOTE | 2018-10-25 02:27 | Internal Med History&Physical ---
Date of Encounter: 10/25/18 Time of Encounter: 01:00 Internal Medicine - H&P: HPI Chief complaint: Abdominal pain Admitted From: Home Plans for Post Hospital Care: Home History of present illness: Mr. De Anda is a 52 year old male with past medical history significant for hypertension, hyperlipidemia, diverticulitis, and tobacco abuse who presents for constant right upper quadrant abdominal pain radiating to his back and the center of his abdomen. Presented to the ER on 10/21/18 for the same and was diagnosed with cholelithiasis without cholecystitis confirmed by ultrasound and had follow-up arranged with surgery outpatient and was discharged home. However he now returns as his pain has persisted and is becoming more severe. Pain is rated at 9/10 when at its worst and reports it waxes and wanes in intensity. Denies any known alleviating or exacerbating factors. Pain is associated with nausea. Patient reports feeling well until this pain recently started. Reports several months ago being told by PCP that he was prediabetic and at that time started dieting and exercising and reports 50 pound weight loss in last six months. As a result of his weight loss he reports being able to stop medications for hypertension and hyperlipidemia. Currently denies being on any medications. ER obtained CT of the abdomen and pelvis which showed enlarging bilateral pelvic lymph nodes with perinodal stranding, moderate to marked splenomegaly, increasing size and number gastrohepatic lymph nodes, increased stranding about the celiac axis, moderate hepatomegaly, cholelithiasis with suspected changes of chronic cholecystitis, constellation of findings along with abnormal weight loss worrisome for occult malignancy, lymphoma leukemia and perhaps prostate cancer suggested as possible diagnoses. ER also obtained EKG which was reported as sinus rhythm. Received fentanyl, morphine, and zofran while in ER and currently reports improvement in his symptoms. Currently denies any headache, numbness, tingling, chest pain, nausea, bowel or bladder changes. ER discussed patient findings with surgery who did not think he was a surgical candidate at this time. ER also discussed with oncology who recommended ad mission to medicine and will see in consult this morning. Follows regularly with his PCP. Reports smokeless tobacco use but denies any alcohol or drug use. Past Med Surg Social Fam HX - Past Medical History Medical history: hyperlipidemia, hypertension, other Additional medical history: diverticulitis Psychiatric history: no psych history - Past Surgical History Surgical History: appendectomy, herniorrhaphy, other Additional surgical history: Tongue, nose, throat for apnea. Right testicle - Social History Smoking Status: Smoker, status unknown Smokeless Tobacco Status: Yes (chew tobacco) Alcohol use: none Drug use: none - Family History Mother Living Status: Hx Family Cancer: Yes (breast and bone cancer) Father Living Status: Hx Family Cardiac Disorders: Yes (HTN) Hx Family Cancer: Yes (lung cancer) Internal Medicine - H&P: Meds No Known Home Drugs 10/24/18 [History] Allergy/AdvReac Type Severity Reaction Status Date / Time Penicillins [PCN] Allergy See Verified 10/04/16 16:31 Comments All Systems PM: A 10-system review of systems was performed and is negative for pertinent findings except as documented above in the HPI. - Constitutional Vitals: Temp Pulse Resp BP Pulse Ox 97.9 F 75 14 133/81 96 10/25/18 01:09 10/25/18 01:09 10/25/18 01:09 10/25/18 01:09 10/25/18 01:09 Exam: General: Alert and oriented. Skin:Normal color, no rash, no lesions. HEENT:Pupils equal, round and reactive. Cardiovascular:Heart sounds distant, no rubs, murmurs or gallops. No JVD. Pulse regular. Lungs:Normal breath sounds, no wheezes or crackles. Abdomen:Soft, no rigidity. Tenderness on palpation to right upper quadrant. Extremities:No deformity, no edema or tenderness, no joint swelling or clubbing. Neurological:Normal cognition and motor skills. Pulses:Carotid and radial pulses normal +2. Rest of the physical exam is non contributory. Internal Med - H&P Results - Labs CBC & Chem 7: 10/24/18 20:14 10/24/18 20:22 Labs: Short CBC 10/24/18 Range/Units 20:14 WBC 7.0 (4.3-11.1) K/mcL Hgb 12.3 L (12.9-16.9) g/dL Hct 37.7 (37.5-50.1) % Plt Count 146 (140-400) K/mcL Neutrophils # 5.1 (1.6-8.9) K/mcL BMP 10/24/18 20:22 Sodium 137 Potassium 3.9 Chloride 104 Carbon Dioxide 24 BUN 14 Creatinine 0.91 Glucose 99 Calcium 9.4 Cardiac Enzymes 10/24/18 Range/Units 20:22 Troponin I < 0.03 (< 0.04) ng/mL Liver Function 10/24/18 Range/Units 20:17 Total Bilirubin 0.6 (0.3-1.0) mg/dL Direct Bilirubin 0.1 (0.0-0.2) mg/dL AST 14 (13-39) Units/L ALT 16 (7-52) Units/L Alkaline Phosphatase 64 (34-104) Units/L Albumin 4.5 (3.5-5.7) g/dL Urine 10/24/18 Range/Units 20:18 Urine Color Yellow (Yellow) Urine Clarity Clear (Clear) Urine pH 6.0 (5.0-8.0) pH Units Ur Specific [place] 1.025 (1.010-1.025) Urine Protein Negative (Neg-Trace) mg/dL Urine Glucose (UA) Normal (Normal) mg/dL - Impressions ITS Impressions Abdomen/Pelvis CT 10/24/18 20:13 IMPRESSION: Enlarging bilateral pelvic lymph nodes with perinodal stranding. Moderate to marked splenomegaly. Increasing size and number of gastrohepatic lymph nodes. Increased stranding about the celiac axis. Moderate hepatomegaly. Cholelithiasis with suspected changes of chronic cholecystitis. Constellation of findings along with abnormal weight loss worrisome for occult malignancy. Lymphoma, leukemia, and perhaps prostate cancer are suggested as possible diagnoses. D/ / Royer Valencia MD / Royer Valencia MD Interpreting Provider: Royer Valencia MD - Assessment and Plan (1) Abdominal pain Current Visit: Yes Status: Acute Assessment and plan: Complains of constant right upper quadrant abdominal pain radiating to his back center of his abdomen waxing and waning in intensity. Seen in ER 10/21/18 for the same and was diagnosed with cholelithiasis without cholecystitis confirmed by ultrasound and had follow-up arranged with surgery outpatient and was discharged home. ER obtained CT of the abdomen and pelvis which showed enlarging bilateral pelvic lymph nodes with perinodal stranding, moderate to marked splenomegaly, increasing size and number gastrohepatic lymph nodes, increased stranding about the celiac axis, moderate hepatomegaly, cholelithiasis with suspected changes of chronic cholecystitis, constellation of findings along with abnormal weight loss worrisome for occult malignancy, lymphoma leukemia and perhaps prostate cancer suggested as possible diagnoses. ER discussed patient findings with surgery who did not think he was a surgical candidate at this time. ER also discussed with oncology who recommended admission to medicine and will see in consult this morning, consult order placed. Pain and nausea control with PRN medications. Qualifiers: Abdominal location: right upper quadrant Qualified Code(s): R10.11 - Right upper quadrant pain (2) Lymphadenopathy Current Visit: Yes Status: Acute Assessment and plan: Plan as stated above. (3) Cholelithiasis with chronic cholecystitis Current Visit: Yes Status: Acute Assessment and plan: Plan as stated above. Follow-up with surgery as outpatient. Qualifiers: Cholelithiasis location: gallbladder Biliary obstruction: without biliary obstruction Qualified Code(s): K80.10 - Calculus of gallbladder with chronic cholecystitis without obstruction (4) Tobacco use Current Visit: No Status: Chronic Assessment and plan: Cessation strongly encouraged. (5) DVT prophylaxis Current Visit: No Status: Acute Assessment and plan: SCDs. - Time Spent With Patient Total time spent is greater than 50% in coordination of care (as documented) at patient's floor/unit and/or counseling patient:
[2018-10-25 04:10] LABS: Basophils % 0.1 %; Eosinophils # 0.2 K/mcL (0.0-0.6); Eosinophils % 2.7 %; Hematocrit 38.2 % (37.5-50.1); Hemoglobin 12.4 g/dL (12.9-16.9); Immature Granulocytes % 0.4 % (0-4); Lymphocytes # 1.1 K/mcL (0.6-4.6); Mean Corpuscular HGB Conc 32.5 g/dL (31.6-35.5); Mean Corpuscular Hemoglobin 29.5 pg (28.0-33.3); Mean Corpuscular Volume 90.7 fL (83.0-100.0); Mean Platelet Volume 9.6 fL (9.4-12.4); Monocytes # 0.4 K/mcL (0.0-1.3); Monocytes % 6.3 %; Neutrophils # 4.9 K/mcL (1.6-8.9); Platelet Count 138 K/mcL (140-400); Red Blood Count 4.21 M/mcL (4.19-5.50); Red Cell Distribution Width 14.4 % (11.5-14.5); Segmented Neutrophils % 73.5 %; White Blood Count 6.7 K/mcL (4.3-11.1)
[2018-10-25 04:22] LABS: BUN/Creatinine Ratio 15 (6-26); Blood Urea Nitrogen 13 mg/dL (6-20); Calcium 9.3 mg/dL (8.6-10.3); Carbon Dioxide 26 mEq/L (23-29); Chloride 103 mEq/L (98-107); Glucose 179 mg/dL (70-105); Osmolality,Calculated 289 (280-300); Potassium 3.8 mEq/L (3.5-5.1); Sodium 137 mEq/L (136-145); eGFR For African Americans > 60 (> 60); eGFR For Non-African Americans > 60 (> 60)
[2018-10-25] MEDS ORDERED: Ondansetron 4 MG/2 ML VIAL IVP PRN (05:00)
[2018-10-25] MEDS: *HR* OxyCODONE Immed Rel 5 MG TABLET PO PRN ×3 (07:28→20:53)
--- NOTE | 2018-10-25 09:20 | Oncology Inp Consult Note ---
Date of Encounter: 10/25/18 Time of Encounter: 08:00 Assessment and Plan (1) Lymphadenopathy Status: Acute Assessment and plan: with splenomegaly, hepatomegaly, (obesity, DM, steatosis-diffuse prior report, splenomegaly smaller than prior CT)--concerning for reactive process vs neoplasm. Obtain CT chest and rpt abd/pelvis with contrast. Peripheral blood flow cytometry. Possible LN biopsy/BM after reviewing above scan findings Viral hepatitis/HIV testing, cultures to r/o infection. PSA, CEA, LDH tests s/p colonoscopy -per report prior colon surgery Mild cytopenia from splenic sequestration plan d.w patient bedside - Data of Consult Requesting Physician: Carissa Blank Primary Care Provider: Natalia Lynch - Consult Narrative Reason for consult: adenopathy History of present illness: 52 year old male with past medical history significant for hypertension, hyperlipidemia, DM, who presented to the emergency room 10/24/2018 with upper abdominal, lower chest discomfort radiating both sites and the back. Vision reports he was fine until 34 days ago when pains started. He was diagnosed with cholelithiasis, cholecystitis when he was evaluated in the emergency room a few days ago. Patient reports that he lost about 50 pounds in 15 weeks or so intentionally to control diabetes. Patient reports taking himself off all medications except for statin. Hematology is consulted for lymphadenopathy. CT of the abdomen and pelvis which showed enlarging bilateral pelvic lymph nodes with perinodal stranding, moderate to marked splenomegaly, increasing size and number gastrohepatic lymph nodes, increased stranding about the celiac axis, moderate hepatomegaly, cholelithiasis with suspected changes of chronic cholecystitis, enlarged prostate gland. s/p colonoscopy in 2017. He was administered pain medications in the ED, patient reports that his pain is better but he has not moved or done anything other than laying in bed. He denies cough, SOB. Past Med Surg Social Fam HX - Past Medical History Medical history: hyperlipidemia, hypertension, other Additional medical history: diverticulitis Psychiatric history: no psych history - Past Surgical History Surgical History: appendectomy, herniorrhaphy, other Additional surgical history: Tongue, nose, throat for apnea. Right testicle - Social History Smoking Status: Smoker, status unknown Smokeless Tobacco Status: Yes (chew tobacco) Alcohol use: none Drug use: none - Family History Mother Living Status: Hx Family Cancer: Yes (breast and bone cancer) Father Living Status: Hx Family Cardiac Disorders: Yes (HTN) Hx Family Cancer: Yes (lung cancer) Medications and Allergies No Known Home Drugs 10/24/18 [History] Allergy/AdvReac Type Severity Reaction Status Date / Time Penicillins [PCN] Allergy See Verified 10/04/16 16:31 Comments Additional comments: wt loss Additional comments: no chest pain or palpitations Respiratory: Present: as per HPI Additional comments: upper abd pain Additional comments: n numbness or tingling Oncology - Exam - Constitutional General appearance: obese - Head Head exam: Present: atraumatic, normal inspection - Eye Eye exam: Present: conjuntiva pink, sclera anicteric - ENT ENT exam: Present: mucous membranes moist - Neck Additional comments: no adenopathy - Respiratory Additional comments: stephan air entry, no rhonchi - Cardiovascular Cardiovascular exam: Present: +S1, +S2 - GI/Abdominal GI/Abdominal exam: Present: soft Additional comments: no tenderness, NBS - Extremities Exam Extremities exam: Present: normal inspection Additional comments: no calf tenderness - Neurological Exam Neurological exam: Present: alert, CN II-XII intact, oriented X3, no focal deficits - Psychiatric Psychiatric exam: Present: normal affect Oncology Inpatient Results CT abd 10/16, 04/18 reviewed Consult Discharge Plan - Plan Referrals: Natalia Lynch CNP [Primary Care Provider] - Inpatient Charges Provider: Dr. Delia Trent Consult - Inpatient: [id number]
[2018-10-25 13:30] LABS: Hepatitis B Surface Antigen Nonreactive (Nonreactive)
[2018-10-25 13:58] LABS: Hepatitis C Virus Antibody Nonreactive (Nonreactive)
[2018-10-25] MEDS ORDERED: Isovue-370 500 ML BOTTLE IVP ONE ×2 (16:35)
--- NOTE | 2018-10-25 16:39 | Event Note ---
Date of Encounter: 10/25/18 Time of Encounter: 09:00 Seen at bedside. H & P reviewed CT scan fo the abdoemn and chest wth IV contrast Continue the pain meds
[2018-10-25] MEDS: *HR* HYDROcodone/Acet 5/325 mg TABLET PO PRN (17:19)
[2018-10-26] MEDS: *HR* OxyCODONE Immed Rel 5 MG TABLET PO PRN ×3 (03:38→16:17)
[2018-10-26 05:10] LABS: BUN/Creatinine Ratio 13 (6-26); Blood Urea Nitrogen 12 mg/dL (6-20); Calcium 9.7 mg/dL (8.6-10.3); Carbon Dioxide 28 mEq/L (23-29); Chloride 98 mEq/L (98-107); Glucose 111 mg/dL (70-105); Osmolality,Calculated 282 (280-300); Potassium 4.1 mEq/L (3.5-5.1); Sodium 136 mEq/L (136-145); eGFR For African Americans > 60 (> 60); eGFR For Non-African Americans > 60 (> 60)
[2018-10-26] MEDS: *HR* HYDROcodone/Acet 5/325 mg TABLET PO PRN ×2 (08:08→20:28)
--- NOTE | 2018-10-26 12:21 | Oncology Inp Progress Note ---
Date of Encounter: 10/26/18 Time of Encounter: 12:00 (1) Lymphadenopathy Current Visit: Yes Status: Acute Assessment and plan: with splenomegaly, hepatomegaly, (obesity, DM, steatosis-diffuse prior report, splenomegaly smaller than prior CT)--concerning for reactive process vs neoplasm. Obtain CT chest no signifiacant adenopathy Peripheral blood flow cytometry. Possible BM outpatient Viral hepatitis/HIV testing, cultures to r/o infection. PSA, CEA nl s/p colonoscopy '17-per report prior colon surgery Mild cytopenia from splenic sequestration plan d.w patient bedside Oncology: Subj Interval history: Generalized aches, denies other specific complaint - Constitutional General appearance: obese - Head Head exam: Present: atraumatic, normal inspection - Eye Eye exam: Present: sclera anicteric - ENT ENT exam: Present: mucous membranes moist - Respiratory Respiratory exam: Present: CTAB - Cardiovascular Cardiovascular exam: Present: +S1, +S2 - GI/Abdominal GI/Abdominal exam: Present: normal bowel sounds, soft - Neurological Exam Neurological exam: Present: alert, CN II-XII intact, oriented X3 Oncology: Obj Data - Labs CBC & Chem 7: 10/25/18 03:24 10/26/18 04:32 Consult Discharge Plan - Plan Referrals: Natalia Lynch, ARLEN [Primary Care Provider] - (Please call Friday to schedule hospital follow up appointment for 7-10 days from date of discharge. ) Inpatient Charges Provider: Dr. Delia Trent Follow up - Inpatient: [id number]
--- NOTE | 2018-10-26 12:46 | Internal Med Progress Note ---
Hospitalist Progress Note - Encounter Date of Encounter: 10/26/18 Time of Encounter: 11:30 - Subjective Interval History: Seen at bedside. Still has severe abdominal pain, on the right upper quadant. Deneis nasuea, vomiting, fever, still requiring pain medications. Got the CT scan of the abdoman and chest yesterday - Exam Vitals: Temp Pulse Resp BP Pulse Ox 98.0 F 68 16 166/89 97 10/26/18 11:48 10/26/18 11:48 10/26/18 11:48 10/26/18 11:48 10/26/18 11:48 Exam: General: Alert and oriented, mild physical distress, able to follow commands.. Respiratory: Normal vesicular breathing, no added sounds, breathing equal in both sides. CVS: Normal heart sounds, no murmurs, no edema. Extremities: No peripheral edema, peripheral pulses intact. Lymph nodes: No lymphadenopathy Gastrointestinal: Soft, mild tnederness int he right upper quadrant, normal abdominal sounds. No distention noted. Genitourinary: No paravertebral tenderness. Neurological: Alert and oriented. No focal deficits. Cranial nerves II-XII intact. - Assessment and Plan (1) Abdominal pain Current Visit: Yes Status: Acute Assessment and Plan: Complaining of constant right upper Quadrant abdominal pain radiating to his back of waxing and waning intensity. Patient was seen almost one week back and was diagnosed with cholelithiasis without cholecystitis and was advised to follow up with the surgery. CT scan of the abdomen was done during this admission which showed enlarging bilateral pelvic lymph nodes with perinodal stranding, moderate to marked splenomegaly, increasing size and number gastrohepatic lymph nodes, increased stranding about the celiac axis, moderate hepatomegaly, cholelithiasis with suspected changes of chronic cholecystitis, constellation of findings along with abnormal weight loss worrisome for occult malignancy, lymphoma leukemia and perhaps prostate cancer suggested as possible diagnoses. Patient other related by oncology yesterday, recommended CT scan of the chest to rule out any primary source of malignancy. CT scan of the chest was negative for any source of malignancy. Patient is complaining of nagging abdominal pain. Afebrile. no leukocytosis. Order ultrasonography of the abdomen again to rule out any acute cholecystitis. -Srgical consult. Continue pain medication. -PT/OT consult as the pain is going to back and in absence of other exapling factors , could be musculoskeletal (2) Cholelithiasis with chronic cholecystitis Current Visit: Yes Status: Acute Assessment and Plan: -managemtn plan noted above (3) Tobacco use Current Visit: No Status: Chronic Assessment and Plan: -COunseled to stop smoking (4) DVT prophylaxis Current Visit: No Status: Acute Assessment and Plan: SCDs. (5) Lymphadenopathy Current Visit: Yes Status: Acute Assessment and Plan: -Oncology on baord -Appreciatereomemndations. -Might need outtpt bobe maroow biopsy as per onc notes (6) Elevated blood pressure reading Current Visit: Yes Status: Acute Assessment and Plan: -Blood pressure noted to be high -Likely due to pain -Will monitor for now - Time Spent with Patient Total time spent is greater than 50% in coordination of care (as documented) at patient's floor/unit and/or counseling patient: Internal Medicine: Result - Labs CBC & Chem 7: 10/25/18 03:24 10/26/18 04:32 Labs: BMP 10/26/18 04:32 Sodium 136 Potassium 4.1 Chloride 98 Carbon Dioxide 28 BUN 12 Creatinine 0.90 Glucose 111 H Calcium 9.7 - Impressions Impressions Abdomen/Pelvis CT 10/25/18 19:15 IMPRESSION: No significant change in the evaluation of the findings on yesterday's study. Marked splenomegaly. Mild bilateral pelvic adenopathy. Mild gastrohepatic ligament and periportal adenopathy. Retroperitoneal stranding again seen and unchanged and of uncertain etiology. Cholelithiasis. No primary malignancy identified. Differential as suggested on yesterday's study. RECOMMENDATIONS: PET-CT may help clarify the significance of the findings. D/ / Royer Valencia MD / Royer Valencia MD Interpreting Provider: Royer Valencia MD Chest CT 10/25/18 19:15 IMPRESSION: No evidence of thoracic malignancy. D/ / 10/25/2018 20:07:57 Santana Jimenez MD / [email or web address] Interpreting Provider: Santana Jimenez MD Consult Discharge Plan - Plan Referrals: Natalia Lynch CNP [Primary Care Provider] - (Please call Friday to schedule hospital follow up appointment for 7-10 days from date of discharge. ) (1) Abdominal pain Qualifiers: Abdominal location: right upper quadrant Qualified Code(s): R10.11 - Right upper quadrant pain (2) Cholelithiasis with chronic cholecystitis Qualifiers: Cholelithiasis location: gallbladder Biliary obstruction: without biliary obstruction Qualified Code(s): K80.10 - Calculus of gallbladder with chronic cholecystitis without obstruction
--- NOTE | 2018-10-26 14:03 | AcuteCare Surgery Consult Note ---
Date of Encounter: 10/26/18 Time of Encounter: 13:45 Assessment and Plan (1) Cholelithiasis with chronic cholecystitis Current Visit: Yes Status: Acute The patient has cholelithiasis and biliary colic. We will plan laparoscopic cholecystectomy, cholangiogram tomorrow. I discussed the risks and benefits with him he understands this and wishes to proceed. Qualifiers: Cholelithiasis location: gallbladder Biliary obstruction: without biliary obstruction Qualified Code(s): K80.10 - Calculus of gallbladder with chronic cholecystitis without obstruction History of Present Illness Consult date: 10/26/18 Reason for consult: abdominal pain History of present illness: The patient is a 52-year-old obese male who is been having right upper quadrant pain for several weeks. He initially had evaluation that demonstrated cholelithiasis. His pain was under reasonable control and he was given outpatient follow-up for elective general surgery. He now presents with recurrent and worsening right upper quadrant pain through to his back. He a CAT scan the abdomen is again demonstrated cholelithiasis but also had diffuse mild adenopathy as well as mild splenomegaly and hepatomegaly. Hematology oncology consultation was obtained and these changes were felt to be reactive rather than malignant. The patient continues to complain of right upper quadrant and subcostal abdominal discomfort. I personally reviewed the CAT scan of the abdomen. The patient has a mildly thickened gallbladder wall with cholelithiasis. He does have moderate hepatomegaly and splenomegaly as well as diffuse small adenopathy with all the lymph nodes under 1.5 cm in size Past Med Surg Social Fam HX - Past Medical History Medical history: hyperlipidemia, hypertension, other Additional medical history: diverticulitis Psychiatric history: no psych history - Past Surgical History Surgical History: appendectomy, herniorrhaphy, other Additional surgical history: Tongue, nose, throat for apnea. Right testicle - Social History Smoking Status: Smoker, status unknown Smokeless Tobacco Status: Yes (chew tobacco) Alcohol use: none Drug use: none - Family History Mother Living Status: Hx Family Cancer: Yes (breast and bone cancer) Father Living Status: Hx Family Cardiac Disorders: Yes (HTN) Hx Family Cancer: Yes (lung cancer) Medications and Allergies No Known Home Drugs 10/24/18 [History] Allergy/AdvReac Type Severity Reaction Status Date / Time Penicillins [PCN] Allergy See Verified 10/26/18 09:24 Comments Review of Systems All systems PM: The remainder of the systems were reviewed and are negative General Surgery Exam Initial Vital Signs Temp Pulse Resp BP Pulse Ox 98.9 F 84 18 150/83 97 10/24/18 19:48 10/24/18 19:48 10/24/18 19:48 10/24/18 19:48 10/24/18 19:48 - General physical appearance well developed, well nourished, moderate distress, moderate pain - Respiratory normal expansion, normal respiratory effort, clear to percussion, clear to auscultation - Cardiovascular Cardiovascular exam: Present: RRR, no murmurs/rubs/gallops - Abdomen Abdomen general surgery: Present: bowel sounds present, tender Abdominal Tenderness: Present: RUQ - Integumentary Integumentary general surgery: Present: warm and dry, no abnormal pigmentation, other (No evidence of jaundice) - Neurologic Present: CN 2-12 grossly intact, normal coordination, normal sensation - Psychiatric Psychiatric general surgery: Present: appropriate, oriented to person, oriented to place, oriented to time, speech is normal, memory intact Exam Initial Vital Signs Temp Pulse Resp BP Pulse Ox 98.9 F 84 18 150/83 97 10/24/18 19:48 10/24/18 19:48 10/24/18 19:48 10/24/18 19:48 10/24/18 19:48 Results - Labs 10/25/18 03:24 10/26/18 04:32 Abnormal lab results Hgb 12.4 g/dL (12.9-16.9) L 10/25/18 03:24 Plt Count 138 K/mcL (140-400) L 10/25/18 03:24 Glucose 111 mg/dL (70-105) H 10/26/18 04:32 Lactate Dehydrogenase 131 Units/L (140-271) L 10/25/18 11:02 Urine Ketones 15 mg/dL (Negative) H 10/24/18 20:18 Urine Bilirubin Small (Negative) H 10/24/18 20:18 Urine Urobilinogen 2.0 mg/dL (Normal) H 10/24/18 20:18 Diabetes panel 10/26/18 Range/Units 04:32 Sodium 136 (136-145) mEq/L Potassium 4.1 (3.5-5.1) mEq/L Chloride 98 (98-107) mEq/L Carbon Dioxide 28 (23-29) mEq/L BUN 12 (6-20) mg/dL Creatinine 0.90 (0.70-1.30) mg/dL Glucose 111 H (70-105) mg/dL Calcium 9.7 (8.6-10.3) mg/dL Calcium panel 10/26/18 Range/Units 04:32 Calcium 9.7 (8.6-10.3) mg/dL Pituitary panel 10/26/18 Range/Units 04:32 Sodium 136 (136-145) mEq/L Potassium 4.1 (3.5-5.1) mEq/L Chloride 98 (98-107) mEq/L Carbon Dioxide 28 (23-29) mEq/L BUN 12 (6-20) mg/dL Creatinine 0.90 (0.70-1.30) mg/dL Glucose 111 H (70-105) mg/dL Calcium 9.7 (8.6-10.3) mg/dL Adrenal panel 10/26/18 Range/Units 04:32 Sodium 136 (136-145) mEq/L Potassium 4.1 (3.5-5.1) mEq/L Chloride 98 (98-107) mEq/L Carbon Dioxide 28 (23-29) mEq/L BUN 12 (6-20) mg/dL Creatinine 0.90 (0.70-1.30) mg/dL Glucose 111 H (70-105) mg/dL Calcium 9.7 (8.6-10.3) mg/dL All other labs normal. - Imaging CT scan - abdomen: image reviewed (I personally reviewed the CAT scan of the abdomen. The patient has findings consistent with chronic cholecystitis and cholelithiasis. Mild hepatosplenomegaly and mild diffuse adenopathy) Consult Discharge Plan - Plan Referrals: Natalia Lynch, ARLEN [Primary Care Provider] - (Please call Friday to schedule hospital follow up appointment for 7-10 days from date of discharge. )
--- NOTE | 2018-10-26 14:28 | Electrocardiograph Report ---
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
[2018-10-27] MEDS: *HR* OxyCODONE Immed Rel 5 MG TABLET PO PRN ×3 (02:31→19:44)
[2018-10-27 07:11] LABS: Basophils % 0.2 %; Eosinophils # 0.2 K/mcL (0.0-0.6); Eosinophils % 2.6 %; Hematocrit 40.3 % (37.5-50.1); Hemoglobin 13.1 g/dL (12.9-16.9); Immature Granulocytes % 0.5 % (0-4); Lymphocytes # 0.9 K/mcL (0.6-4.6); Lymphocytes % 14.4 %; Mean Corpuscular HGB Conc 32.5 g/dL (31.6-35.5); Mean Corpuscular Hemoglobin 28.8 pg (28.0-33.3); Mean Corpuscular Volume 88.6 fL (83.0-100.0); Mean Platelet Volume 9.7 fL (9.4-12.4); Monocytes # 0.5 K/mcL (0.0-1.3); Monocytes % 8.4 %; Neutrophils # 4.8 K/mcL (1.6-8.9); Platelet Count 167 K/mcL (140-400); Red Blood Count 4.55 M/mcL (4.19-5.50); Red Cell Distribution Width 14.1 % (11.5-14.5); Segmented Neutrophils % 73.9 %; White Blood Count 6.5 K/mcL (4.3-11.1)
[2018-10-27 07:28] LABS: BUN/Creatinine Ratio 23 (6-26); Blood Urea Nitrogen 16 mg/dL (6-20); Calcium 9.9 mg/dL (8.6-10.3); Carbon Dioxide 27 mEq/L (23-29); Chloride 99 mEq/L (98-107); Glucose 113 mg/dL (70-105); Osmolality,Calculated 288 (280-300); Potassium 4.4 mEq/L (3.5-5.1); Sodium 138 mEq/L (136-145); eGFR For African Americans > 60 (> 60); eGFR For Non-African Americans > 60 (> 60)
[2018-10-27] MEDS ORDERED: 0.9 % Sodium Chloride 1,000 ML IVC SCH (09:15)
[2018-10-27 10:09] LABS: INR 1.2; Prothrombin Time 13.7 Seconds (9.4-12.1)
--- NOTE | 2018-10-27 13:22 | Anesthesia Evaluation PreOp ---
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: Denies Any Significant HX Other Medical History: Denies Any Significant HX Anesthesia History: No Prior Anesthetic Complications, Past Anesthesia Alcohol Use: none Drug use: none Medications and Allergies No Known Home Drugs 10/24/18 [History] Allergy/AdvReac Type Severity Reaction Status Date / Time Penicillins [PCN] Allergy See Verified 10/26/18 09:24 Comments - Meds/Allergy Pre-op Review Medications Reviewed: Yes Allergies Reviewed: Yes Beta Blockers on Current Med List: No Anesthesia Results - Labs 10/27/18 06:32 10/27/18 06:32 - Imaging EKG: report reviewed (10/24/2018 Sinus rhythm Prolonged [place] interval Borderline low voltage, extremity leads) Additional studies: 10/05/2016 Stress Impression: Perfusion imaging was negative for ischemia or infarct. Exercise ECG was negative for ischemia. Isolated PVC, ventricular bigeminy and trigeminy during exercise. Gated EF = >70%. Anesthesia Exam Vital Signs/O2 Sat, Most Current Temp Pulse Resp BP Pulse Ox 98.3 F 68 18 121/75 93 10/27/18 11:56 10/27/18 11:56 10/27/18 11:56 10/27/18 11:56 10/27/18 11:56 Height: 6'/1.83m Weight: 289 lbs/131.1 kg NPO (# of Hours): 8 Pain Scale: 0 Pain Scale Used: Numeric (1 - 10) - HEENT Pupil (Motor): EOMI Mallampati: III Teeth: Normal Oral Opening: Greater than 3 - SCREEN MACHINE OPERATOR LOC: Oriented SCREEN MACHINE OPERATOR Motor: Normal RUE, Normal LUE, Normal RLE, Normal LLE, Normal Face SCREEN MACHINE OPERATOR Sensory: Normal: RUE, LUE, RLE, LLE, Face - Cardiac Rhythm: Regular Murmur: None - Pulmonary Breath Sounds: bilateral Clear Respiratory Effort: Symmetrical Anesthesia Assess/Plan ASA Score: 2 Level of consciousness: Cooperative, Oriented, Tranquil Anesthetic Plan: General Monitoring Plan: Standard Monitors Recovery Plan: PACU
[2018-10-27] MEDS ORDERED: *HR* FentaNYL (PF) 100 MCG/2 ML VIAL ONE (13:39)
[2018-10-27] MEDS ORDERED: *HR* Propofol 200 MG/20 ML VIAL IVP ONE (13:39)
[2018-10-27] MEDS ORDERED: *HR* Midazolam HCl 2 MG/2 ML VIAL ONE (13:39)
[2018-10-27] MEDS ORDERED: *HR* Rocuronium Bromide 50 MG/5 ML VIAL ONE (13:43)
[2018-10-27] MEDS ORDERED: Lidocaine HCL 4 ML Topical Solution (Laryng-O-Jet Kit Sterile Pak) TP ONE (13:43)
[2018-10-27] MEDS ORDERED: *HR* Succinylcholine 200 MG/10 ML VIAL IVP ONE (13:43)
[2018-10-27] MEDS ORDERED: Lidocaine -MPF 2% 2 ML VIAL ONE (13:43)
[2018-10-27] MEDS ORDERED: Acetaminophen IV 1,000 MG/100 ML INFUS..BTL ONE (13:46)
[2018-10-27] MEDS ORDERED: CefOXitin 1,000 MG VIAL ONE (13:58)
[2018-10-27] MEDS ORDERED: Isovue-300 50 ML VIAL ONE (13:59)
[2018-10-27] MEDS ORDERED: CefOXitin 2,000 MG VIAL ONE (14:22)
--- NOTE | 2018-10-27 14:25 | Oncology Inp Progress Note ---
<Taylor Younger - Last Filed: 10/27/18 14:17> Date of Encounter: 10/27/18 Time of Encounter: 13:00 (1) Lymphadenopathy Current Visit: Yes Status: Acute Assessment and plan: CT abdomen and pelvis 10/25/18: Mild bilateral pelvic adenopathy. Mild gastrohepatic ligament and periportal adenopathy. Retroperitoneal stranding again seen and unchanged and of uncertain etiology. Cholelithiasis. No primary malignancy identified. Patient declines biopsy at this time. (2) Splenomegaly Current Visit: No Status: Acute Assessment and plan: with splenomegaly, hepatomegaly, (obesity, DM, steatosis-diffuse prior report, splenomegaly smaller than prior CT)--concerning for reactive process vs neoplasm. CT chest no signifiacant adenopathy Peripheral blood flow cytometry pending. Patient declines bone marrow biopsy at this time. Viral hepatitis negative HIV testing, cultures to r/o infection. PSA WNL, CEA WNL s/p colonoscopy -per report prior colon surgery Mild cytopenia from splenic sequestration plan d.w patient bedside Oncology: Subj Interval history: Mr. De Anda is awake, sitting in chair. He c/o RUQ abdominal pain and lower back pain. He states that he had to sleep in a chair last night, resting head on his bedside table. He is requesting a recliner chair and states that the bed is causing his back pain. He states that the pain is muscular in nature. Discussed bone marrow biopsy procedure. Patient and spouse decline biopsy at this time. - Additional findings Additional findings: General: Alert and oriented, Mental Status: Affect appropriate for circumstances Skin: No rashes or petechiae. Lymph nodes: No cervical or supraclavicularl adenopathy noted. Lungs: diminished. Cardiovascular: Regular rate and rhythm. No gallops, murmurs, or rubs. Abdomen: Obese, nontender to palpation. Neurologic: Alert, cranial nerves II-XII intact; no focal weakness or sensory abnormalities. Oncology: Obj Data - Labs CBC & Chem 7: 10/27/18 06:32 10/27/18 06:32 Consult Discharge Plan - Plan Referrals: Natalia Lynch, SUSPECT ARTIST [Primary Care Provider] - (Please call Friday to schedule hospital follow up appointment for 7-10 days from date of discharge. ) Inpatient Charges Provider: Dr. Delia Trent <Jordana Trentthi - Last Filed: 10/27/18 15:50> Date of Encounter: 10/27/18 (1) Lymphadenopathy Current Visit: Yes Status: Acute Oncology: Subj Interval history: Generalized aches more rt upper abd/lower chest. BM bx to evaluate cytopenia, spleen suggested, procedure, risk benefits discussed. He did not want one. Requesting pain to be managed adequately. until prior to surgery. I examined this patient and my medical decision-making was reviewed with the Advanced Practice Nurse Taylor Younger I agree with the documented findings, disposition and treatment plan as described except to the extent set forth below. . Oncology: Obj Data - Labs CBC & Chem 7: 10/27/18 06:32 10/27/18 06:32 Inpatient Charges Provider: Dr. Delia Trent Follow up - Inpatient: [id number]
[2018-10-27] MEDS ORDERED: cefOXitin 2,000 MG in Water for inj. (sterile) 20 ML IVP ONE ×2 (14:29→16:52)
--- NOTE | 2018-10-27 14:36 | Internal Med Progress Note ---
Hospitalist Progress Note - Encounter Date of Encounter: 10/27/18 Time of Encounter: 10:23 - Subjective Interval History: Patient seen at bedside. Still has severe abdominal pain. Still requiring continous pain meds. Denies fever, chills. Denies chest pain or SOB. - Exam Vitals: Temp Pulse Resp BP Pulse Ox 98.3 F 68 18 121/75 93 10/27/18 11:56 10/27/18 11:56 10/27/18 11:56 10/27/18 11:56 10/27/18 11:56 Exam: General: Alert and oriented, mild physical distress, able to follow commands.. Respiratory: Normal vesicular breathing, no added sounds, breathing equal in both sides. CVS: Normal heart sounds, no murmurs, no edema. Extremities: No peripheral edema, peripheral pulses intact. Lymph nodes: No lymphadenopathy Gastrointestinal: Soft, moderate tnederness int he right upper quadrant, normal abdominal sounds. No distention noted. Genitourinary: No paravertebral tenderness. Neurological: Alert and oriented. No focal deficits. Cranial nerves II-XII intact. - Assessment and Plan (1) Abdominal pain Current Visit: Yes Status: Acute Assessment and Plan: Complaining of constant right upper Quadrant abdominal pain radiating to his back of waxing and waning intensity. Patient was seen almost one week back and was diagnosed with cholelithiasis without cholecystitis and was advised to follow up with the surgery. CT scan of the abdomen was done during this admission which showed enlarging bilateral pelvic lymph nodes with perinodal stranding, moderate to marked splenomegaly, increasing size and number gastrohepatic lymph nodes, increased stranding about the celiac axis, moderate hepatomegaly, cholelithiasis with suspected changes of chronic cholecystitis, constellation of findings along with abnormal weight loss worrisome for occult malignancy, lymphoma leukemia and perhaps prostate cancer suggested as possible diagnoses. Patient other related by oncology yesterday, recommended CT scan of the chest to rule out any primary source of malignancy. CT scan of the chest was negative for any source of malignancy. Afebrile. no leukocytosis. USG showed cholelithiasis -Surgery taking the pt to OR for cholecystectomy. Continue pain medication. (2) Cholelithiasis with chronic cholecystitis Current Visit: Yes Status: Acute Assessment and Plan: -managemtn plan noted above (3) Tobacco use Current Visit: No Status: Chronic Assessment and Plan: -COunseled to stop smoking (4) DVT prophylaxis Current Visit: No Status: Acute Assessment and Plan: SCDs. (5) Lymphadenopathy Current Visit: Yes Status: Acute Assessment and Plan: -Oncology on baord -Appreciate reomemndations. -Might need outtpt bobe maroow biopsy as per onc notes (6) Elevated blood pressure reading Current Visit: Yes Status: Acute Assessment and Plan: -Blood pressure normal -Will monitor for now - Time Spent with Patient Total time spent is greater than 50% in coordination of care (as documented) at patient's floor/unit and/or counseling patient: Internal Medicine: Result - Labs CBC & Chem 7: 10/27/18 06:32 10/27/18 06:32 Labs: Short CBC 10/27/18 Range/Units 06:32 WBC 6.5 (4.3-11.1) K/mcL Hgb 13.1 (12.9-16.9) g/dL Hct 40.3 (37.5-50.1) % Plt Count 167 (140-400) K/mcL Neutrophils # 4.8 (1.6-8.9) K/mcL BMP 10/27/18 06:32 Sodium 138 Potassium 4.4 Chloride 99 Carbon Dioxide 27 BUN 16 Creatinine 0.71 Glucose 113 H Calcium 9.9 - ABG Interpretation ABG results: PT/INR, D-dimer PT 13.7 Seconds (9.4-12.1) H 10/27/18 09:30 - Impressions Impressions Abdomen Ultrasound 10/26/18 21:00 IMPRESSION: Mild fatty infiltration of the liver. Cholelithiasis. D/ / Veronika Sidhu Cha, MD / Veronika Sidhu Cha, MD Interpreting Provider: Veronika Sidhu Cha, MD Consult Discharge Plan - Plan Referrals: Natalia Lynch CNP [Primary Care Provider] - (Please call Friday to schedule h ospital follow up appointment for 7-10 days from date of discharge. ) (1) Abdominal pain Qualifiers: Qualified Code(s): R10.11 - Right upper quadrant pain (2) Cholelithiasis with chronic cholecystitis Qualifiers: Qualified Code(s): K80.10 - Calculus of gallbladder with chronic cholecystitis without obstruction
[2018-10-27] MEDS ORDERED: Ondansetron 4 MG/2 ML VIAL ONE (14:41)
[2018-10-27] MEDS ORDERED: Dexamethasone 4 MG/ML VIAL ONE (14:41)
[2018-10-27] MEDS ORDERED: Ketorolac 30 MG/ML VIAL ONE (14:46)
--- NOTE | 2018-10-27 15:51 | Operative Note ---
Date of procedure: 10/27/18 Pre-op diagnosis: Cholelithiasis and biliary colic Post-op diagnosis: same Procedure: Laparoscopic cholecystectomy, cholangiogram Anesthesia: NICOLAS Surgeon: Stefan Back Was there an senior sales assistant present: No Estimated blood loss (cc): 10 Specimen: Gallbladder and contents Condition: stable Disposition: PACU Procedure in Detail: Laparoscopic cholecystectomy and intraoperative cholangiogram Operative procedure: after informed consent and appropriate patient identification, the patient was taken to the major operating suite and placed supine position and given adequate general endotracheal anesthesia. The abdomen was prepped and draped in sterile fashion utilizing ChloraPrep standard draping techniques. Timeout was taken and the patient was identified. I made a vertical midline incision below the umbilicus and dissected down to level of fascia. I placed 2 traction stitches of 0 vicryl in the midline fascia and the abdominal cavity was entered visually. A Schaeffer trocar was placed in the abdomen and the abdomen was insufflated to 15 mmHg pressure CO2. The gallbladder was visualized. I placemed an 11 port in the subxiphoid area and two 5 mm ports in the subcostal area. The liver was completely normal morphologically. The dictation for biopsy. The gallbladder was grasped and elevated. A variety of blunt and sharp dissection techniques were used to isolate the cystic duct and cystic artery. The cystic artery was controlled with 2 surgical clips proximally and one distally and it was divided. I placed a surgical clip on the neck the gallbladder and obtained an intraoperative cholangiogram using 10 mL of Isovue. Intraoperative cholangiogram was normal. The cholangiocatheter was removed and the cystic duct was controlled with 2 surgical clips proximally and was divided. The gallbladder was removed from the gallbladder fossae using electrocautery. The gallbladder was removed from the abdomen through the #11 port site. I replaced the #11 port and irrigated with copious amounts of antibiotic containing solution. There was no evidence of bleeding or bile leak. All trochars were removed. Fascia was closed with 0 Vicryl and the skin with 2-0 and 4-0 Vicry. He tolerated the procedure well and was transferred to recovery in stable condition
[2018-10-27] MEDS: *HR* HYDROmorphone (PF) 1 MG/ML SYRINGE IVP PRN ×2 (15:59→16:04)
--- NOTE | 2018-10-27 16:24 | Anesthesia Evaluation Post Op ---
Date of Encounter: 10/27/18 Time of Encounter: 16:24 - Vital Signs Vital Signs: Vital Signs/O2 Sat, Most Current Temp Pulse Resp BP Pulse Ox 99.1 F 77 20 155/88 94 10/27/18 16:20 10/27/18 16:20 10/27/18 16:20 10/27/18 16:20 10/27/18 16:20 - Lungs Lungs: Clear Ascult./Percussion - Airway Airway: Non-obstructed - Cardiovascular Regular Rate - Mental Status Mental Status: Alert & Oriented, Answers Appropriately - Pain Pain Scale: 0 Pain Scale used: Numeric (1 - 10) - Nausea Vomiting Nausea Vomiting: Not Present - Hydration Hydration: Ice chips, Has not voided - Discharge PostOp Status: Transfer Patient to floor
[2018-10-27] MEDS ORDERED: Acetaminophen 325 MG TABLET PO PRN (16:52)
[2018-10-27] MEDS ORDERED: Naloxone 0.4 MG/ML INJ IVP PRN (16:52)
[2018-10-27] MEDS ORDERED: Ondansetron 4 MG/2 ML VIAL IVP PRN (16:52)
[2018-10-27] MEDS: 0.9 % Sodium Chloride 1,000 ML IVC SCH ×2 (17:28→19:54)
[2018-10-28] MEDS: *HR* HYDROcodone/Acet 5/325 mg TABLET PO PRN ×2 (02:46→20:14)
[2018-10-28 05:33] LABS: Basophils % 0.1 %; Eosinophils % 0.1 %; Hematocrit 35.5 % (37.5-50.1); Hemoglobin 11.6 g/dL (12.9-16.9); Immature Granulocytes % 0.3 % (0-4); Lymphocytes # 0.8 K/mcL (0.6-4.6); Lymphocytes % 9.3 %; Mean Corpuscular HGB Conc 32.7 g/dL (31.6-35.5); Mean Corpuscular Hemoglobin 28.6 pg (28.0-33.3); Mean Corpuscular Volume 87.7 fL (83.0-100.0); Mean Platelet Volume 10.1 fL (9.4-12.4); Monocytes # 0.4 K/mcL (0.0-1.3); Monocytes % 4.7 %; Neutrophils # 7.5 K/mcL (1.6-8.9); Platelet Count 185 K/mcL (140-400); Red Blood Count 4.05 M/mcL (4.19-5.50); Red Cell Distribution Width 13.8 % (11.5-14.5); Segmented Neutrophils % 85.5 %; White Blood Count 8.8 K/mcL (4.3-11.1)
[2018-10-28 05:47] LABS: BUN/Creatinine Ratio 33 (6-26); Blood Urea Nitrogen 27 mg/dL (6-20); Calcium 10.1 mg/dL (8.6-10.3); Carbon Dioxide 29 mEq/L (23-29); Chloride 96 mEq/L (98-107); Glucose 165 mg/dL (70-105); Osmolality,Calculated 291 (280-300); Potassium 4.6 mEq/L (3.5-5.1); Sodium 136 mEq/L (136-145); eGFR For African Americans > 60 (> 60); eGFR For Non-African Americans > 60 (> 60)
--- NOTE | 2018-10-28 09:01 | Discharge Summary ---
Orders not resulted at time of discharge: Pending orders 10/25/18 11:02 Chromosome FISH,CLL Periph Bld Routine Hepatitis B Core Ab Total Routine Peripheral Bld Flow Routine 10/27/18 15:18 Surgical Pathology [PTH] Routine Date of Encounter: 10/28/18 Time of Encounter: 08:59 - Discharge Diagnosis (1) Chronic cholecystitis Priority: Primary Status: Acute Comments: 52M POD #1 s/p lap chey 2/2 cholecystitis, chronic; painc controlled; ambulating; voiding on his own; diet as tolerated okay for discharge today follow up in [facility] clinic in 2 weeks General Surgery Exam Initial Vital Signs Temp Pulse Resp BP Pulse Ox 98.9 F 84 18 150/83 97 10/24/18 19:48 10/24/18 19:48 10/24/18 19:48 10/24/18 19:48 10/24/18 19:48 - Hospital Course Hospital course: Mr. De Anda is a 52 year old male - Time Spent with Patient Total time spent providing and/or coordinating discharge services: - Discharge Medications Prescriptions: New HYDROcodone/Acet 5/325 mg [[place] 5-325 mg] 1 tab PO Q6HR PRN 7 Days #28 tablet PRN Reason: Moderate Pain Home Medications: HYDROcodone/Acet 5/325 mg [[place] 5-325 mg] 1 tab PO Q6HR PRN 7 Days #28 tablet 10/28/18 [Rx] Allergies/Adverse Reactions: Allergy/AdvReac Type Severity Reaction Status Date / Time Penicillins [PCN] Allergy See Verified 10/26/18 09:24 Comments Date of admission: 10/24/18 22:57 Primary care physician: Natalia Lynch Consults: 10/24/18 22:31 Consult to Oncology [CONS] Stat Consulting Provider: Oncology [facility] Reason for Consult: evlaution for GI cancer Time Notified: 22:32 Call Completed: Yes 10/26/18 10:33 Consult to Physical Therapy [CONS] Routine Comment: Evaluate, develop and implement POC Reason for Consult: muscle and back pain Does patient have active BEDREST order?: No Is patient medically & hemodynamically stable?: Yes Patient assessed for mobility or mobilized this visit?: Yes 10/26/18 12:40 Consult to Surgery [CONS] Routine Consulting Provider: [facility] Reason for Consult: Abdominal pain. Cholelithiasis. Pain non resolving, needs recommendations Call Completed: Yes Discharging clinician: Betito Ortiz Anticipated date of discharge: 10/28/18 Labs on day of discharge: Labs from last 24 hours 10/28/18 10/28/18 10/27/18 04:51 04:51 09:30 WBC 8.8 RBC 4.05 L Hgb 11.6 L D Hct 35.5 L MCV 87.7 MCH 28.6 MCHC 32.7 RDW 13.8 Plt Count 185 MPV 10.1 Immature Gran % 0.3 Seg Neutrophils % 85.5 Lymphocytes % 9.3 Monocytes % 4.7 Eosinophils % 0.1 Basophils % 0.1 Neutrophils # 7.5 Lymphocytes # 0.8 Monocytes # 0.4 Eosinophils # 0.0 Basophils # 0.0 PT 13.7 H INR 1.2 Sodium 136 Potassium 4.6 Chloride 96 L Carbon Dioxide 29 BUN 27 H Creatinine 0.83 Est GFR ( Amer) > 60 Est GFR (Non-Af Amer) > 60 BUN/Creatinine Ratio 33 H Glucose 165 H Calculated Osmolality 291 Calcium 10.1 - Impressions ITS Impressions Abdomen/Pelvis CT 10/24/18 20:13 IMPRESSION: Enlarging bilateral pelvic lymph nodes with perinodal stranding. Moderate to marked splenomegaly. Increasing size and number of gastrohepatic lymph nodes. Increased stranding about the celiac axis. Moderate hepatomegaly. Cholelithiasis with suspected changes of chronic cholecystitis. Constellation of findings along with abnormal weight loss worrisome for occult malignancy. Lymphoma, leukemia, and perhaps prostate cancer are suggested as possible diagnoses. D/ / Royer Valencia MD / Royer Valencia MD Interpreting Provider: Royer Valencia MD Abdomen/Pelvis CT 10/25/18 19:15 IMPRESSION: No significant change in the evaluation of the findings on yesterday's study. Marked splenomegaly. Mild bilateral pelvic adenopathy. Mild gastrohepatic ligament and periportal adenopathy. Retroperitoneal stranding again seen and unchanged and of uncertain etiology. Cholelithiasis. No primary malignancy identified. Differential as suggested on yesterday's study. RECOMMENDATIONS: PET-CT may help clarify the significance of the findings. D/ / Royer Valencia MD / Royer Valencia MD Interpreting Provider: Royer Valencia MD Chest CT 10/25/18 19:15 IMPRESSION: No evidence of thoracic malignancy. D/ / 10/25/2018 20:07:57 Santana Jimenez MD / louise Interpreting Provider: Santana Jimenez MD Abdomen Ultrasound 10/26/18 21:00 IMPRESSION: Mild fatty infiltration of the liver. Cholelithiasis. D/ / Veronika Sidhu Cha, MD / Veronika Sidhu Cha, MD Interpreting Provider: Veronika Sidhu Cha, MD Cholangiogram,Operative 10/27/18 00:00 IMPRESSION: As above. Please refer to dedicated operative note for full details. D/ / 10/27/2018 15:43:42 Kristyn Holland MD / louise Interpreting Provider: Kristyn Holland MD - Patient Status Condition: Good - Discharge Instructions Instructions: Laparoscopic Cholecystectomy (DC) Follow Up With: Natalia Lynch, ARLEN [Primary Care Provider] - (Please call Friday to schedule hospital follow up appointment for 7-10 days from date of discharge. ) Albino Dickinson [Partnered Physician] - 11/17/18 8:50 am Additional Instructions: General Surgical Discharge Instructions 1. No pushing, pulling, or lifting greater than 15 lbs for 2-4 weeks (depending upon procedure). 2. You may remove your dressings and shower beginning 10/29/2018, but no tub baths, soaking, or swimming for 2 weeks. 3. No driving for two weeks unless otherwise specified and then you may resume driving when you are off narcotics and are safe to react in a car. 4. Take ibuprofen every 8 hours for discomfort. If this does not relieve discomfort, you may take the as needed Percocet. Eat a small snack with pain medication as this will help reduce the risk of nausea. Take narcotics as directed. Do not take more narcotics then directed and do not share your narcotics with any other person. Do not drink alcohol while on narcotics. You can take the Zofran/ondansetron if needed for nausea or with a dose of narcotics to prevent nausea. 5. Take stool softeners (Colace) or a water based laxative (Miralax) while taking narcotics. You may hold for loose stools. 6. Report any fevers greater than 100.5F, increase abdominal discomfort, drainage that looks like pus, increased redness or pain at the surgical site, or any vomiting. 7. Report any pain in the calves, shortness of breath, or rapid heartbeat. 8. Follow-up in the office as directed. 9. If you were prescribed antibiotics, do not stop them without talking to your provider.
--- NOTE | 2018-10-28 09:04 | AcuteCareSurgery Progress Note ---
Date of Encounter: 10/28/18 Time of Encounter: 09:02 - Assessment and Plan (1) Chronic cholecystitis Current Visit: Yes Status: Acute 52M POD #1 s/p lap chey 2/2 chronic cholecystitis; pain controlled, toleratin diet, voiding; okay to discharge follow up with acute care surgery clinic as written general surgery will sign off; please call with any new questions or concerns; Subjective Patient reports: no new complaints, feels better, still having pain, pain is less, afebrile Objective Vital Signs - Last 8 Hours Temp Pulse Resp BP Pulse Ox 10/28/18 06:31 97.8 F 63 16 139/73 95 10/28/18 03:10 97.9 F 74 16 146/83 98 Intake and Output 10/27/18 10/28/18 10/28/18 23:59 07:59 15:59 Intake Total 1999 Output Total 400 / 410 Balance -380 / -390 1999 Intake: IV Fluids 1999 0.9 % Sodium Chloride 1,000 ML 1999 @ 125 mls/hr IVC .Q8H [facility] Rx#: [id number] Mefoxin 2,000 MG In Water for inj. (sterile) 20 ML @ 300 mls/ hr IVP ONCE ONE Rx#:[id number] Output: Urine 400 / 400 Other: Weight 129.092 kg Patient Weight 10/28/18 23:59 Weight 129.092 kg - General physical appearance no distress - Respiratory normal expansion, normal respiratory effort - Cardiovascular Cardiovascular exam: Present: RRR - Abdomen Abdomen: Present: soft, tender (appropriately tender) - Incision Incision: Present: clean and dry, intact - Neurologic CN 2-12 grossly intact - Psychiatric oriented to time, oriented to person, oriented to place - Labs 10/28/18 04:51 10/28/18 04:51 Diabetes panel 10/28/18 Range/Units 04:51 Sodium 136 (136-145) mEq/L Potassium 4.6 (3.5-5.1) mEq/L Chloride 96 L (98-107) mEq/L Carbon Dioxide 29 (23-29) mEq/L BUN 27 H (6-20) mg/dL Creatinine 0.83 (0.70-1.30) mg/dL Glucose 165 H (70-105) mg/dL Calcium 10.1 (8.6-10.3) mg/dL Calcium panel 10/28/18 Range/Units 04:51 Calcium 10.1 (8.6-10.3) mg/dL Pituitary panel 10/28/18 Range/Units 04:51 Sodium 136 (136-145) mEq/L Potassium 4.6 (3.5-5.1) mEq/L Chloride 96 L (98-107) mEq/L Carbon Dioxide 29 (23-29) mEq/L BUN 27 H (6-20) mg/dL Creatinine 0.83 (0.70-1.30) mg/dL Glucose 165 H (70-105) mg/dL Calcium 10.1 (8.6-10.3) mg/dL Adrenal panel 10/28/18 Range/Units 04:51 Sodium 136 (136-145) mEq/L Potassium 4.6 (3.5-5.1) mEq/L Chloride 96 L (98-107) mEq/L Carbon Dioxide 29 (23-29) mEq/L BUN 27 H (6-20) mg/dL Creatinine 0.83 (0.70-1.30) mg/dL Glucose 165 H (70-105) mg/dL Calcium 10.1 (8.6-10.3) mg/dL Consult Discharge Plan - Plan Instructions: Laparoscopic Cholecystectomy (DC) Additional Instructions: General Surgical Discharge Instructions 1. No pushing, pulling, or lifting greater than 15 lbs for 2-4 weeks (depending upon procedure). 2. You may remove your dressings and shower beginning 10/29/2018, but no tub baths, soaking, or swimming for 2 weeks. 3. No driving for two weeks unless otherwise specified and then you may resume driving when you are off narcotics and are safe to react in a car. 4. Take ibuprofen every 8 hours for discomfort. If this does not relieve discomfort, you may take the as needed Percocet. Eat a small snack with pain medication as this will help reduce the risk of nausea. Take narcotics as directed. Do not take more narcotics then directed and do not share your narcotics with any other person. Do not drink alcohol while on narcotics. You can take the Zofran/ondansetron if needed for nausea or with a dose of narcotics to prevent nausea. 5. Take stool softeners (Colace) or a water based laxative (Miralax) while taking narcotics. You may hold for loose stools. 6. Report any fevers greater than 100.5F, increase abdominal discomfort, drainage that looks like pus, increased redness or pain at the surgical site, or any vomiting. 7. Report any pain in the calves, shortness of breath, or rapid heartbeat. 8. Follow-up in the office as directed. 9. If you were prescribed antibiotics, do not stop them without talking to your provider. Referrals: Natalia Lynch, [employer] [Primary Care Provider] - (Please call Friday to schedule hospital follow up appointment for 7-10 days from date of discharge. ) Albino Dickinson [Partnered Physician] - 11/17/18 8:50 am Prescriptions: HYDROcodone/Acet 5/325 mg [[place] 5-325 mg] 1 tab PO Q6HR PRN 7 Days #28 tablet PRN Reason: Moderate Pain
[2018-10-28] MEDS: *HR* OxyCODONE Immed Rel 5 MG TABLET PO PRN ×2 (10:07→16:26)
[2018-10-28] MEDS: 0.9 % Sodium Chloride 1,000 ML IVC SCH ×3 (13:16→22:21)
[2018-10-28 14:32] LABS: Alpha 2 Globulin (PEP) 0.99 g/dL (0.48-1.05); Beta Globulin (PEP) 0.84 g/dL (0.48-1.10)
[2018-10-28 15:10] LABS: IFE Reflexed NOT DONE
--- NOTE | 2018-10-28 16:14 | Internal Med Progress Note ---
Hospitalist Progress Note - Encounter Date of Encounter: 10/28/18 Time of Encounter: 16:12 - Subjective Interval History: Patient was seen and examined at the bedside today. Patient reports moderate pain. Patient has been voiding. And passing gas. Patient has denied any bowel movement yet. Patient denies any nausea or vomiting. Patient denies any fever, chills, shortness of breath, palpitation, and dizziness. - Exam Vitals: Temp Pulse Resp BP Pulse Ox 98.7 F 74 16 147/77 97 10/28/18 11:32 10/28/18 11:32 10/28/18 11:32 10/28/18 11:32 10/28/18 11:32 Exam: General: Alert and oriented, mild physical distress, able to follow commands.. Respiratory: Normal vesicular breathing, no added sounds, breathing equal in both sides. CVS: Normal heart sounds, no murmurs, no edema. Extremities: No peripheral edema, peripheral pulses intact. Lymph nodes: No lymphadenopathy Gastrointestinal: Soft, moderate tnederness int he right upper quadrant, normal abdominal sounds. No distention noted. For incision for laparoscopic cholecystectomy were noted. Genitourinary: No paravertebral tenderness. Neurological: Alert and oriented. No focal deficits. Cranial nerves II-XII intact. - Assessment and Plan (1) Cholelithiasis with chronic cholecystitis Current Visit: Yes Status: Acute Assessment and Plan: Patient is status post laproscopic cholecystectomy postoperative day one. We will continue to monitor and continue to observe him for pain management. We will advance diet as tolerated. Discharge tomorrow. (2) Abdominal pain Current Visit: Yes Status: Acute Assessment and Plan: - Patient is status post laparoscopic cholecystectomy postoperative day 1. Patient complaining of mild abdominal pain. Patient has been voiding urine. (3) Lymphadenopathy Current Visit: Yes Status: Acute Assessment and Plan: -Oncology on baord recommended bone marrow biopsy as an outpatient. (4) DVT prophylaxis Current Visit: No Status: Acute Assessment and Plan: SCDs. - Time Spent with Patient Total time spent is greater than 50% in coordination of care (as documented) at patient's floor/unit and/or counseling patient: 25 - 35 minutes Plan of Care Discussed with: patient Internal Medicine: Result - Labs CBC & Chem 7: 10/28/18 04:51 10/28/18 04:51 Labs: Short CBC 10/28/18 Range/Units 04:51 WBC 8.8 (4.3-11.1) K/mcL Hgb 11.6 L D (12.9-16.9) g/dL Hct 35.5 L (37.5-50.1) % Plt Count 185 (140-400) K/mcL Neutrophils # 7.5 (1.6-8.9) K/mcL BMP 10/28/18 04:51 Sodium 136 Potassium 4.6 Chloride 96 L Carbon Dioxide 29 BUN 27 H Creatinine 0.83 Glucose 165 H Calcium 10.1 - ABG Interpretation ABG results: PT/INR, D-dimer PT 13.7 Seconds (9.4-12.1) H 10/27/18 09:30 Consult Discharge Plan - Plan Instructions: Laparoscopic Cholecystectomy (DC) Additional Instructions: General Surgical Discharge Instructions 1. No pushing, pulling, or lifting greater than 15 lbs for 2-4 weeks (depending upon procedure). 2. You may remove your dressings and shower beginning 10/29/2018, but no tub baths, soaking, or swimming for 2 weeks. 3. No driving for two weeks unless otherwise specified and then you may resume driving when you are off narcotics and are safe to react in a car. 4. Take ibuprofen every 8 hours for discomfort. If this does not relieve discomfort, you may take the as needed Percocet. Eat a small snack with pain medication as this will help reduce the risk of nausea. Take narcotics as directed. Do not take more narcotics then directed and do not share your narcotics with any other person. Do not drink alcohol while on narcotics. You can take the Zofran/ondansetron if needed for nausea or with a dose of narcotics to prevent nausea. 5. Take stool softeners (Colace) or a water based laxative (Miralax) while taking narcotics. You may hold for loose stools. 6. Report any fevers greater than 100.5F, increase abdominal discomfort, drainage that looks like pus, increased redness or pain at the surgical site, or any vomiting. 7. Report any pain in the calves, shortness of breath, or rapid heartbeat. 8. Follow-up in the office as directed. 9. If you were prescribed antibiotics, do not stop them without talking to your provider. Referrals: Natalia Lynch, [employer] [Primary Care Provider] - (Please call Friday to schedule hospital follow up appointment for 7-10 days from date of discharge. ) Albino Dickinson [Partnered Physician] - 11/17/18 8:50 am Prescriptions: HYDROcodone/Acet 5/325 mg [[place] 5-325 mg] 1 tab PO Q6HR PRN 7 Days #28 tablet PRN Reason: Moderate Pain (1) Cholelithiasis with chronic cholecystitis Qualifiers: Cholelithiasis location: gallbladder Biliary obstruction: without biliary obstruction Qualified Code(s): K80.10 - Calculus of gallbladder with chronic cholecystitis without obstruction (2) Abdominal pain Qualifiers: Abdominal location: right upper quadrant Qualified Code(s): R10.11 - Right upper quadrant pain
[2018-10-29 04:49] LABS: Basophils % 0.2 %; Eosinophils # 0.3 K/mcL (0.0-0.6); Eosinophils % 3.1 %; Hematocrit 38.4 % (37.5-50.1); Hemoglobin 12.2 g/dL (12.9-16.9); Immature Granulocytes % 0.5 % (0-4); Lymphocytes # 1.4 K/mcL (0.6-4.6); Lymphocytes % 16.8 %; Mean Corpuscular HGB Conc 31.8 g/dL (31.6-35.5); Mean Corpuscular Hemoglobin 28.8 pg (28.0-33.3); Mean Corpuscular Volume 90.6 fL (83.0-100.0); Mean Platelet Volume 9.4 fL (9.4-12.4); Monocytes # 0.6 K/mcL (0.0-1.3); Monocytes % 7.3 %; Neutrophils # 6.1 K/mcL (1.6-8.9); Platelet Count 173 K/mcL (140-400); Red Blood Count 4.24 M/mcL (4.19-5.50); Red Cell Distribution Width 14.3 % (11.5-14.5); Segmented Neutrophils % 72.1 %; White Blood Count 8.4 K/mcL (4.3-11.1)
[2018-10-29 05:08] LABS: Alanine Aminotransferase 30 Units/L (7-52); Albumin 4.1 g/dL (3.5-5.7); Albumin/Globulin Ratio 1.4 (1.1-2.2); Alkaline Phosphatase 68 Units/L (34-104); Aspartate Amino Transferase 22 Units/L (13-39); BUN/Creatinine Ratio 26 (6-26); Bilirubin,Total 0.6 mg/dL (0.3-1.0); Blood Urea Nitrogen 19 mg/dL (6-20); Calcium 9.3 mg/dL (8.6-10.3); Carbon Dioxide 26 mEq/L (23-29); Chloride 101 mEq/L (98-107); Globulin 2.9 g/dL (2.4-3.5); Glucose 106 mg/dL (70-105); Osmolality,Calculated 289 (280-300); Potassium 4.3 mEq/L (3.5-5.1); Sodium 138 mEq/L (136-145); eGFR For African Americans > 60 (> 60); eGFR For Non-African Americans > 60 (> 60)
[2018-10-29] MEDS: *HR* HYDROcodone/Acet 5/325 mg TABLET PO PRN (07:00)
[2018-10-29] MEDS: 0.9 % Sodium Chloride 1,000 ML IVC SCH (07:37)
[2018-10-29 08:19] VITALS: BP 116/70
--- NOTE | 2018-10-29 09:12 | Discharge Summary ---
- NOTES TO OUTPATIENT PROVIDER Notes to Outpatient Provider: Patient was presented to the hospital with complaint of abdominal pain. CT scan of the abdomen shows enlargement or splenomegaly. And there was a concern of malignancy. Oncology was consulted and suggested outpatient bone marrow biopsy. PCP to follow-up on the surgical p athology report status post and also outpatient bone marrow biopsy for suspicious malignancy. Orders not resulted at time of discharge: Pending orders 10/25/18 11:02 Chromosome FISH,CLL Periph Bld Routine Peripheral Bld Flow Routine 10/27/18 15:18 Surgical Pathology [PTH] Routine Date of Encounter: 10/29/18 Time of Encounter: 09:09 - Discharge Diagnosis (1) Cholelithiasis with chronic cholecystitis Priority: Primary Status: Chronic Assessment and Plan: . Qualifiers: Cholelithiasis location: gallbladder Biliary obstruction: without biliary obstruction Qualified Code(s): K80.10 - Calculus of gallbladder with chronic cholecystitis without obstruction (2) Abdominal pain Priority: Secondary Status: Acute Qualifiers: Abdominal location: right upper quadrant Qualified Code(s): R10.11 - Right upper quadrant pain (3) Lymphadenopathy Priority: Secondary Status: Acute (4) DVT prophylaxis Priority: Secondary Status: Acute Hospital course: Mr. De Anda is a 52 year old male presented to the hospital complaining of severe abdominal pain. Upon presentation to the hospital CT scan of the abdomen showed enlarged lymphadenopathy, splenomegaly and there was concern for malignancy. Oncology was consulted and they recommended outpatient bone marrow biopsy for suspected malignancy. Patient informed he will go by the stone and cholecystitis on admission. Patient had surgery done for that. Patient had laparoscopic cholecystectomy done on October 27, 2018. Patient recovered well after surgery. Patient is stable today to be discharged home. Patient was explained to follow up with primary care provider within one week. Follow-up with oncology to get an bone marrow biopsy. Patient also has to follow a lipid surgery. Discharge discussed with: patient, family, nurse, case management - Time Spent with Patient Total time spent providing and/or coordinating discharge services: 40 Time spent: Greater than 30 minutes - Discharge Medications Prescriptions: New HYDROcodone/Acet 5/325 mg [Skippers 5-325 mg] 1 tab PO Q6HR PRN 7 Days #28 tablet PRN Reason: Moderate Pain Polyethylene Glycol 3350 [MiraLAX] 17 gm PO DAILY 14 Days #14 powd.pack Acetaminophen [Tylenol] 650 mg PO Q6HR PRN tablet PRN Reason: Mild Pain/Fever Home Medications: HYDROcodone/Acet 5/325 mg [Skippers 5-325 mg] 1 tab PO Q6HR PRN 7 Days #28 tablet 10/28/18 [Rx] Acetaminophen [Tylenol] 650 mg PO Q6HR PRN tablet 10/29/18 [Rx] Polyethylene Glycol 3350 [MiraLAX] 17 gm PO DAILY 14 Days #14 powd.pack 10/29/18 [Rx] Allergies/Adverse Reactions: Allergy/AdvReac Type Severity Reaction Status Date / Time Penicillins [PCN] Allergy See Verified 10/26/18 09:24 Comments Date of admission: 10/24/18 22:57 Primary care physician: Natalia Lynch Consults: 10/24/18 22:31 Consult to Oncology [CONS] Stat Consulting Provider: [facility] Reason for Consult: evlaution for GI cancer Time Notified: 22:32 Call Completed: Yes 10/26/18 10:33 Consult to Physical Therapy [CONS] Routine Comment: Evaluate, develop and implement POC Reason for Consult: muscle and back pain Does patient have active BEDREST order?: No Is patient medically & hemodynamically stable?: Yes Patient assessed for mobility or mobilized this visit?: Yes 10/26/18 12:40 Consult to Surgery [CONS] Routine Consulting Provider: [facility] Reason for Consult: Abdominal pain. Cholelithiasis. Pain non resolving, needs recommendations Call Completed: Yes Discharging clinician: Uli Wakefield Holland - Constitutional Vitals: Temp Pulse Resp BP Pulse Ox 98.3 F 80 19 116/70 98 10/29/18 08:18 10/29/18 08:18 10/29/18 08:18 10/29/18 08:18 10/29/18 08:18 Exam: General: Alert and oriented, mild physical distress, able to follow commands.. Respiratory: Normal vesicular breathing, no added sounds, breathing equal in both sides. CVS: Normal heart sounds, no murmurs, no edema. Extremities: No peripheral edema, peripheral pulses intact. Lymph nodes: No lymphadenopathy Gastrointestinal: Soft, moderate tnederness int he right upper quadrant, normal abdominal sounds. No distention noted. For incision for laparoscopic cholecystectomy were noted. Genitourinary: No paravertebral tenderness. Neurological: Alert and oriented. No focal deficits. Cranial nerves II-XII intact. - Patient Status Disposition: Home, Self-Care Condition: Good Overall status at discharge: patient is progressing back to baseline - Discharge Instructions Instructions: Laparoscopic Cholecystectomy (DC) Follow Up With: Natalia Lynch CNP [Primary Care Provider] - 11/06/18 10:45 am () Albino Dickinson [Partnered Physician] - 11/17/18 8:50 am Additional Instructions: General Surgical Discharge Instructions 1. No pushing, pulling, or lifting greater than 15 lbs for 2-4 weeks (depending upon procedure). 2. You may remove your dressings and shower beginning 10/29/2018, but no tub baths, soaking, or swimming for 2 weeks. 3. No driving for two weeks unless otherwise specified and then you may resume driving when you are off narcotics and are safe to react in a car. 4. Take ibuprofen every 8 hours for discomfort. If this does not relieve discomfort, you may take the as needed Percocet. Eat a small snack with pain medication as this will help reduce the risk of nausea. Take narcotics as directed. Do not take more narcotics then directed and do not share your narcotics with any other person. Do not drink alcohol while on narcotics. You can take the Zofran/ondansetron if needed for nausea or with a dose of narcotics to prevent nausea. 5. Take stool softeners (Colace) or a water based laxative (Miralax) while taking narcotics. You may hold for loose stools. 6. Report any fevers greater than 100.5F, increase abdominal discomfort, drainage that looks like pus, increased redness or pain at the surgical site, or any vomiting. 7. Report any pain in the calves, shortness of breath, or rapid heartbeat. 8. Follow-up in the office as directed. 9. If you were prescribed antibiotics, do not stop them without talking to your provider. - Diet and Activity Activity: increase activity as tolerated Diet: advance to your usual diet
== END 2018-10-29 10:28 | disposition home or self-care (01) ==
LOC: 3BNU 19:43 → EMEROOARM 19:43 → SUATTDRO 22:57 → 3BNU 23:51
PROVIDERS: ADMIT Family Medicine; ATTEND Family Medicine